=== PATIENT | male | born 1955 | race Caucasian/White ===

== ENCOUNTER 2018-11-28 19:12 | Observation (INO) ==
[2018-11-28] MEDS ORDERED: Isovue-370 500 ML INFUS..BTL IV ONE (19:22)
[2018-11-28] MEDS ORDERED: 0.9 % Sodium Chloride 1,000 ML IVC ONE (19:22)
--- NOTE | 2018-11-28 19:26 | Emergency Department Note ---
Disposition Clinical Impression: Syncope Qualifiers: Syncope type: unspecified Qualified Code(s): R55 - Syncope and collapse Disposition: Still a Patient Condition: Undetermined Referrals: NONE,PCP [Primary Care Provider] - Syncope HPI - General Stated Complaint: neck pain/syncope Time Seen by Provider: 11/28/18 19:13 Source: patient, EMS Mode of arrival: EMS Limitations: no limitations Nursing Notes Reviewed: Yes Vital Signs Reviewed: Yes - History of Present Illness HPI Narrative: Patient presents to the ED via EMS after a syncopal episode. Patient does live at an assisted living facility. He has a history of chronic neck pain and states it has been bothering him more than usual lately. According to EMS, the staff said the patient was sitting down at dinner and started complaining of very sharp left-sided neck pain and then had a syncopal episode. He did not have any associated injury with the fall, but he woke up and was confused and did not remember what happened. He denies any headache or changes in vision. He is still complaining of neck pain. States the pain starts in his chest and goes up into his neck, but does not radiate down his arm or into his back. Does seem to be worse with side bending and rotation. Denies any other chest pain or shortness breath. No abdominal pain. No nausea, vomiting, diarrhea. No diaphoresis. No numbness, weakness or tingling in his extremities - Related Data Home Medications Medication Instructions Recorded Confirmed ALPRAZolam [Xanax 0.25 MG Tablet] 01/14/16 Albuterol Sulfate [Proair Hfa] 01/14/16 Aspirin [Adult Low Dose Aspirin EC] 01/14/16 BuPROPion [Wellbutrin] 75 mg PO TID 01/14/16 01/14/16 Budesonide/Formoterol 80/4.5 01/14/16 [Symbicort 80/4.5] Budesonide/Formoterol 80/4.5 01/14/16 [Symbicort 80/4.5] Carvedilol [Coreg] 01/14/16 Cholecalciferol (Vitamin D3) 01/14/16 [Vitamin D] Cyanocobalamin (Vitamin B-12) 01/14/16 [Vitamin B-12] Cyclobenzaprine [Flexeril] 01/14/16 Esomeprazole Magnesium [Nexium] 01/14/16 Fluticasone Propionate Nasal 01/14/16 [Flonase] Furosemide [Lasix] 01/14/16 Ibuprofen [Motrin] 01/14/16 Ipratropium [Atrovent Inhaler] 1 puff IH 01/14/16 Lansoprazole [Prevacid] 01/14/16 Loratadine [Claritin] 01/14/16 Meperidine HCl [Demerol] 01/14/16 Montelukast [Singulair] 01/14/16 Nitrostat 01/14/16 Oxycodone HCl/Acetaminophen 01/14/16 [Percocet 5-325 mg Tablet] Oxymetazoline HCl [Nasal [place]] 01/14/16 Paridaxa 01/14/16 Potassium 01/14/16 RisperiDONE [Risperdal] 01/14/16 Sertraline [Zoloft] 01/14/16 Spiriva 01/14/16 Previous Rx's Medication Instructions Recorded Cefuroxime Axetil [Ceftin] 500 mg PO BID #20 tablet 01/14/16 Oxycodone HCl/Acetaminophen 1 each PO Q6HR PRN #15 tablet 08/30/16 [Percocet 5-325 mg Tablet] Allergies Allergy/AdvReac Type Severity Reaction Status Date / Time aripiprazole [From Abilify] Allergy See Verified 08/16/15 14:31 Comments codeine Allergy See Verified 08/16/15 14:31 Comments gabapentin [From Neurontin] Allergy See Verified 08/16/15 14:31 Comments Review of Systems: As reviewed in the HPI. All other systems reviewed are negative or normal. Past Medical History - Past Medical History Attestation: Yes The following information was validated with the patient. Source: patient Medical history: Reports: atrial fibrillation, CHF, COPD, coronary artery disease, CVA, diabetes, GERD, hyperlipidemia, hypertension, myocardial infarction, pulmonary embolus, other Surgical history: Reports: pacemaker/AICD Psychiatric history: Reports: anxiety, bipolar, depression, PTSD - Social History Smoking Status: Never smoker Smokeless Tobacco Status: No Alcohol use: Reports: occasionally Drug use: Reports: none Physical Exam CONSTITUTIONAL: [Chronically ill appearing, alert and in no acute distress] EYES: [EOMI, clear conjunctiva, PERRLA] HENT: [Normocephalic, atraumatic, moist mucus membranes, normal oropharynx] NECK: [normal inspection, full ROM, trachea midline, no obvious swelling] PULMONARY: [normal lung sounds bilaterally, normal chest rise and fall, no respiratory distress or stridor, no wheezes, no rales, no rhonchi CARDIOVASCULAR: [regular rate, regular rhythm, normal heart sounds, no murmurs, distal extremities are warm and well perfused] GASTROINSTESTINAL: [soft, non-tender, non-rigid, non-distended, no guarding, no rebound, normal bowel sounds] GENITOURINARY/RECTAL: [deferred] NEUROLOGIC: [Alert, oriented x3, normal speech, moves all extremities] EXTREMITIES: [Normal inspection, full ROM, no tenderness, no pedal edema, normal capillary refill] MUSCULOSKELETAL: [no gross deformities, atraumatic] SKIN: [No cyanosis, no diaphoresis, normal color, warm, no rash] PSYCHIATRIC: [normal mood and affect] Course - Reevaluation(s) Reevaluation #1: patient signed out to Dr. Dockery/Francesca pending CTA head/neck reads and pending admission to hospitalist service. Patient stable. Vital Signs Temperature 98.7 F 11/28/18 19:23 Pulse Rate 70 11/28/18 19:23 Respiratory Rate 18 11/28/18 19:23 Blood Pressure 131/81 11/28/18 19:23 O2 Sat by Pulse Oximetry 99 11/28/18 19:23 Temperature 98.7 F 11/28/18 19:23 Pulse Rate 70 11/28/18 19:23 Respiratory Rate 18 11/28/18 19:23 Blood Pressure 131/81 11/28/18 19:23 O2 Sat by Pulse Oximetry 99 11/28/18 19:23 Oxygen Delivery Oxygen Delivery Room Air Syncope - Lab Data Result diagrams: 11/28/18 19:30 11/28/18 19:30 Lab Results 11/28/18 11/28/18 11/28/18 Range/Units 19:30 19:30 19:30 WBC 6.7 (4.3-11.1) K/mcL RBC 5.04 (4.19-5.50) M/mcL Hgb 14.1 (12.9-16.9) g/dL Hct 43.9 (37.5-50.1) % MCV 87.1 (83.0-100.0) fL MCH 28.0 (28.0-33.3) pg MCHC 32.1 (31.6-35.5) g/dL RDW 13.2 (11.5-14.5) % Plt Count 107 L (140-400) K/mcL MPV 10.7 (9.4-12.4) fL Immature Gran % 0.1 (0-4) % Seg Neutrophils % 55.5 % Lymphocytes % 32.7 % Monocytes % 7.7 % Eosinophils % 3.4 % Basophils % 0.6 % Neutrophils # 3.7 (1.6-8.9) K/mcL Lymphocytes # 2.2 (0.6-4.6) K/mcL Monocytes # 0.5 (0.0-1.3) K/mcL Eosinophils # 0.2 (0.0-0.6) K/mcL Basophils # 0.0 (0.0-0.2) K/mcL PT 14.7 H (9.4-12.1) Seconds INR 1.3 APTT 47.2 H (26.0-36.0) Seconds Sodium 139 (136-145) mEq/L Potassium 4.1 (3.5-5.1) mEq/L Chloride 108 H (98-107) mEq/L Carbon Dioxide 24 (23-29) mEq/L BUN 12 (8-23) mg/dL Creatinine 1.06 (0.70-1.30) mg/dL Est GFR ( Amer) > 60 (> 60) Est GFR (Non-Af Amer) > 60 (> 60) BUN/Creatinine Ratio 11 (6-26) Glucose 241 H (70-105) mg/dL Calculated Osmolality 296 (280-300) Lactic Acid (0.5-2.2) mmol/L Calcium 8.7 (8.6-10.3) mg/dL Troponin I < 0.03 (< 0.04) ng/mL Urine Color (Yellow) Urine Clarity (Clear) Urine pH (5.0-8.0) pH Units Ur Specific [place] (1.010-1.025) Urine Protein (Neg-Trace) mg/dL Urine Glucose (UA) (Normal) mg/dL Urine Ketones (Negative) mg/dL Urine Blood (Negative) Urine Nitrite (Negative) Urine Bilirubin (Negative) Urine Urobilinogen (Normal) mg/dL Ur Leukocyte Esterase (Negative) 11/28/18 11/28/18 Range/Units 19:30 20:28 WBC (4.3-11.1) K/mcL RBC (4.19-5.50) M/mcL Hgb (12.9-16.9) g/dL Hct (37.5-50.1) % MCV (83.0-100.0) fL MCH (28.0-33.3) pg MCHC (31.6-35.5) g/dL RDW (11.5-14.5) % Plt Count (140-400) K/mcL MPV (9.4-12.4) fL Immature Gran % (0-4) % Seg Neutrophils % % Lymphocytes % % Monocytes % % Eosinophils % % Basophils % % Neutrophils # (1.6-8.9) K/mcL Lymphocytes # (0.6-4.6) K/mcL Monocytes # (0.0-1.3) K/mcL Eosinophils # (0.0-0.6) K/mcL Basophils # (0.0-0.2) K/mcL PT (9.4-12.1) Seconds INR APTT (26.0-36.0) Seconds Sodium (136-145) mEq/L Potassium (3.5-5.1) mEq/L Chloride (98-107) mEq/L Carbon Dioxide (23-29) mEq/L BUN (8-23) mg/dL Creatinine (0.70-1.30) mg/dL Est GFR ( Amer) (> 60) Est GFR (Non-Af Amer) (> 60) BUN/Creatinine Ratio (6-26) Glucose (70-105) mg/dL Calculated Osmolality (280-300) Lactic Acid 1.8 (0.5-2.2) mmol/L Calcium (8.6-10.3) mg/dL Troponin I (< 0.04) ng/mL Urine Color Yellow (Yellow) Urine Clarity Clear (Clear) Urine pH 6.0 (5.0-8.0) pH Units Ur Specific [place] 1.009 L (1.010-1.025) Urine Protein Negative (Neg-Trace) mg/dL Urine Glucose (UA) 500 H (Normal) mg/dL Urine Ketones Negative (Negative) mg/dL Urine Blood Negative (Negative) Urine Nitrite Negative (Negative) Urine Bilirubin Negative (Negative) Urine Urobilinogen Normal (Normal) mg/dL Ur Leukocyte Esterase Negative (Negative) - EKG Data EKG attestation: Yes I reviewed and interpreted this EKG. EKG results narrative: Patient's EKG demonstrates a ventricularly paced rhythm with a heart rate of 70. Attestation Statement - Attestation Attestation: Patient was seen with resident physician. I reviewed the history, physical, assessment and plan, and agree with the findings. I also personally evaluated this patient and had [id number] time with this patient. 63-year-old male lives at an assisted living facility, presents today with syncope and neck pain. Patient states that these had chronic neck pain which got an acute exacerbation minutes on the left side and the cervical spine laterally. I said after developing pain he was being woken up on the ground. He said he passed out. He has had a history of 3 strokes. Does not have significant syncope. He does have multiple medical problems. Currently says he feels okay. His neck still hurts but is not feel like is given a passout no chest pain shortness of breath diaphoresis or other complaints. Review of systems as above remainder negative. Physical exam vital signs are stable. ENT is unremarkable. Neck is tender to palpation on the left lateral aspect with muscle spasm in the area. Heart regular rhythm and rate. Lungs clear. Abdomen soft and nontender. Extremities unremarkable. Neurologically intact. Skin no rashes. Psych normal. I with the patient's syncope and vascular history, we will do CTA of the head neck. He was still a patient of the time of shift change. 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 At that time CT scans were pending as was final disposition which we will recommend be admission. Patient was hemodynamically stable otherwise while in the emergency department under my care and had no additional episodes of syncope or focal neurologic findings. Agree with the resident physician assessment and plan.
[2018-11-28 19:44] LABS: Basophils % 0.6 %; Eosinophils # 0.2 K/mcL (0.0-0.6); Eosinophils % 3.4 %; Hematocrit 43.9 % (37.5-50.1); Hemoglobin 14.1 g/dL (12.9-16.9); Immature Granulocytes % 0.1 % (0-4); Lymphocytes # 2.2 K/mcL (0.6-4.6); Lymphocytes % 32.7 %; Mean Corpuscular HGB Conc 32.1 g/dL (31.6-35.5); Mean Corpuscular Volume 87.1 fL (83.0-100.0); Mean Platelet Volume 10.7 fL (9.4-12.4); Monocytes # 0.5 K/mcL (0.0-1.3); Monocytes % 7.7 %; Neutrophils # 3.7 K/mcL (1.6-8.9); Platelet Count 107 K/mcL (140-400); Red Blood Count 5.04 M/mcL (4.19-5.50); Red Cell Distribution Width 13.2 % (11.5-14.5); Segmented Neutrophils % 55.5 %
[2018-11-28 19:53] LABS: INR 1.3; Prothrombin Time 14.7 Seconds (9.4-12.1)
[2018-11-28 19:56] LABS: Activated Partial Thrombo Time 47.2 Seconds (26.0-36.0)
[2018-11-28 20:03] LABS: BUN/Creatinine Ratio 11 (6-26); Blood Urea Nitrogen 12 mg/dL (8-23); Calcium 8.7 mg/dL (8.6-10.3); Carbon Dioxide 24 mEq/L (23-29); Chloride 108 mEq/L (98-107); Glucose 241 mg/dL (70-105); Osmolality,Calculated 296 (280-300); Potassium 4.1 mEq/L (3.5-5.1); Sodium 139 mEq/L (136-145); eGFR For Non-African Americans > 60 (> 60)
[2018-11-28 20:04] LABS: Troponin I < 0.03 ng/mL (< 0.04)
[2018-11-28 20:40] LABS: Bilirubin,Urine Negative (Negative); Blood,Urine Negative (Negative); Clarity,Urine Clear (Clear); Color,Urine Yellow (Yellow); Glucose,Urine (UA) 500 mg/dL (Normal); Ketones,Urine Negative (Negative); Leukocyte Esterase,Urine Negative (Negative); Nitrite,Urine Negative (Negative); Protein,Urine Negative (Neg-Trace); Specific Gravity,Urine 1.009 (1.010-1.025); Urobilinogen,Urine Normal (Normal)
--- NOTE | 2018-11-28 23:22 | Emergency Department Note ---
Disposition Clinical Impression: Syncope Qualifiers: Syncope type: unspecified Qualified Code(s): R55 - Syncope and collapse Disposition: Admitted As Inpatient Condition: Undetermined Referrals: NONE,PCP [Primary Care Provider] - Syncope HPI - General Chief Complaint: ED Syncope Stated Complaint: neck pain/syncope Time Seen by Provider: 11/28/18 19:13 Source: patient, EMS Mode of arrival: EMS Limitations: no limitations Nursing Notes Reviewed: Yes Vital Signs Reviewed: Yes - Related Data Home Medications Medication Instructions Recorded Confirmed ALPRAZolam [Xanax 0.25 MG Tablet] 01/14/16 Albuterol Sulfate [Proair Hfa] 01/14/16 Aspirin [Adult Low Dose Aspirin EC] 01/14/16 BuPROPion [Wellbutrin] 75 mg PO TID 01/14/16 01/14/16 Budesonide/Formoterol 80/4.5 01/14/16 [Symbicort 80/4.5] Budesonide/Formoterol 80/4.5 01/14/16 [Symbicort 80/4.5] Carvedilol [Coreg] 01/14/16 Cholecalciferol (Vitamin D3) 01/14/16 [Vitamin D] Cyanocobalamin (Vitamin B-12) 01/14/16 [Vitamin B-12] Cyclobenzaprine [Flexeril] 01/14/16 Esomeprazole Magnesium [Nexium] 01/14/16 Fluticasone Propionate Nasal 01/14/16 [Flonase] Furosemide [Lasix] 01/14/16 Ibuprofen [Motrin] 01/14/16 Ipratropium [Atrovent Inhaler] 1 puff IH 01/14/16 Lansoprazole [Prevacid] 01/14/16 Loratadine [Claritin] 01/14/16 Meperidine HCl [Demerol] 01/14/16 Montelukast [Singulair] 01/14/16 Nitrostat 01/14/16 Oxycodone HCl/Acetaminophen 01/14/16 [Percocet 5-325 mg Tablet] Oxymetazoline HCl [Nasal [place]] 01/14/16 Paridaxa 01/14/16 Potassium 01/14/16 RisperiDONE [Risperdal] 01/14/16 Sertraline [Zoloft] 01/14/16 Spiriva 01/14/16 Previous Rx's Medication Instructions Recorded Cefuroxime Axetil [Ceftin] 500 mg PO BID #20 tablet 01/14/16 Oxycodone HCl/Acetaminophen 1 each PO Q6HR PRN #15 tablet 08/30/16 [Percocet 5-325 mg Tablet] Allergies Allergy/AdvReac Type Severity Reaction Status Date / Time aripiprazole [From Abilify] Allergy See Verified 08/16/15 14:31 Comments codeine Allergy See Verified 08/16/15 14:31 Comments gabapentin [From Neurontin] Allergy See Verified 08/16/15 14:31 Comments Past Medical History - Past Medical History Medical history: Reports: atrial fibrillation, CHF, COPD, coronary artery disease, CVA, diabetes, GERD, hyperlipidemia, hypertension, myocardial i nfarction, pulmonary embolus, other Surgical history: Reports: pacemaker/AICD Psychiatric history: Reports: anxiety, bipolar, depression, PTSD - Social History Smoking Status: Never smoker Smokeless Tobacco Status: No Alcohol use: Reports: occasionally Drug use: Reports: none Physical Exam - General Limitations: no limitations General appearance: alert, in no apparent distress Course Course Narrative: Patient taken over from Dr. Haley. Patient is a vasculopath with previous OH. Came in complaining of worsening left neck pain with associated syncope. EKG shows ventricularly paced rhythm. Following up on CTA which does not show any acute abnormality. Case was discussed with Dr. Dong. Patient admitted to the hospitalist service. Vital Signs Temperature 98.7 F 11/28/18 19:23 Pulse Rate 70 11/28/18 19:23 Respiratory Rate 18 11/28/18 19:23 Blood Pressure 131/81 11/28/18 19:23 O2 Sat by Pulse Oximetry 99 11/28/18 19:23 Temperature 98.7 F 11/28/18 19:23 Pulse Rate 70 11/28/18 22:10 Respiratory Rate 18 11/28/18 22:10 Blood Pressure 145/83 11/28/18 22:10 O2 Sat by Pulse Oximetry 100 11/28/18 22:10 Oxygen Delivery Oxygen Delivery Room Air Syncope - Lab Data Result diagrams: 11/28/18 19:30 11/28/18 19:30 Lab Results 11/28/18 11/28/18 11/28/18 Range/Units 19:30 19:30 19:30 WBC 6.7 (4.3-11.1) K/mcL RBC 5.04 (4.19-5.50) M/mcL Hgb 14.1 (12.9-16.9) g/dL Hct 43.9 (37.5-50.1) % MCV 87.1 (83.0-100.0) fL MCH 28.0 (28.0-33.3) pg MCHC 32.1 (31.6-35.5) g/dL RDW 13.2 (11.5-14.5) % Plt Count 107 L (140-400) K/mcL MPV 10.7 (9.4-12.4) fL Immature Gran % 0.1 (0-4) % Seg Neutrophils % 55.5 % Lymphocytes % 32.7 % Monocytes % 7.7 % Eosinophils % 3.4 % Basophils % 0.6 % Neutrophils # 3.7 (1.6-8.9) K/mcL Lymphocytes # 2.2 (0.6-4.6) K/mcL Monocytes # 0.5 (0.0-1.3) K/mcL Eosinophils # 0.2 (0.0-0.6) K/mcL Basophils # 0.0 (0.0-0.2) K/mcL PT 14.7 H (9.4-12.1) Seconds INR 1.3 APTT 47.2 H (26.0-36.0) Seconds Sodium 139 (136-145) mEq/L Potassium 4.1 (3.5-5.1) mEq/L Chloride 108 H (98-107) mEq/L Carbon Dioxide 24 (23-29) mEq/L BUN 12 (8-23) mg/dL Creatinine 1.06 (0.70-1.30) mg/dL Est GFR ( Amer) > 60 (> 60) Est GFR (Non-Af Amer) > 60 (> 60) BUN/Creatinine Ratio 11 (6-26) Glucose 241 H (70-105) mg/dL Calculated Osmolality 296 (280-300) Lactic Acid (0.5-2.2) mmol/L Calcium 8.7 (8.6-10.3) mg/dL Troponin I < 0.03 (< 0.04) ng/mL Urine Color (Yellow) Urine Clarity (Clear) Urine pH (5.0-8.0) pH Units Ur Specific [place] (1.010-1.025) Urine Protein (Neg-Trace) mg/dL Urine Glucose (UA) (Normal) mg/dL Urine Ketones (Negative) mg/dL Urine Blood (Negative) Urine Nitrite (Negative) Urine Bilirubin (Negative) Urine Urobilinogen (Normal) mg/dL Ur Leukocyte Esterase (Negative) 11/28/18 11/28/18 Range/Units 19:30 20:28 WBC (4.3-11.1) K/mcL RBC (4.19-5.50) M/mcL Hgb (12.9-16.9) g/dL Hct (37.5-50.1) % MCV (83.0-100.0) fL MCH (28.0-33.3) pg MCHC (31.6-35.5) g/dL RDW (11.5-14.5) % Plt Count (140-400) K/mcL MPV (9.4-12.4) fL Immature Gran % (0-4) % Seg Neutrophils % % Lymphocytes % % Monocytes % % Eosinophils % % Basophils % % Neutrophils # (1.6-8.9) K/mcL Lymphocytes # (0.6-4.6) K/mcL Monocytes # (0.0-1.3) K/mcL Eosinophils # (0.0-0.6) K/mcL Basophils # (0.0-0.2) K/mcL PT (9.4-12.1) Seconds INR APTT (26.0-36.0) Seconds Sodium (136-145) mEq/L Potassium (3.5-5.1) mEq/L Chloride (98-107) mEq/L Carbon Dioxide (23-29) mEq/L BUN (8-23) mg/dL Creatinine (0.70-1.30) mg/dL Est GFR ( Amer) (> 60) Est GFR (Non-Af Amer) (> 60) BUN/Creatinine Ratio (6-26) Glucose (70-105) mg/dL Calculated Osmolality (280-300) Lactic Acid 1.8 (0.5-2.2) mmol/L Calcium (8.6-10.3) mg/dL Troponin I (< 0.04) ng/mL Urine Color Yellow (Yellow) Urine Clarity Clear (Clear) Urine pH 6.0 (5.0-8.0) pH Units Ur Specific [place] 1.009 L (1.010-1.025) Urine Protein Negative (Neg-Trace) mg/dL Urine Glucose (UA) 500 H (Normal) mg/dL Urine Ketones Negative (Negative) mg/dL Urine Blood Negative (Negative) Urine Nitrite Negative (Negative) Urine Bilirubin Negative (Negative) Urine Urobilinogen Normal (Normal) mg/dL Ur Leukocyte Esterase Negative (Negative)
[2018-11-29] MEDS ORDERED: Naloxone 0.4 MG/ML INJ IVP PRN (00:42)
[2018-11-29] MEDS ORDERED: Albuterol 2.5 MG/3 ML NEBULIZER IH PRN (01:05)
[2018-11-29] MEDS ORDERED: 0.9 % Sodium Chloride 1,000 ML IVC ONE (01:10)
[2018-11-29] MEDS ORDERED: *HR* Dextrose 50 % in Water (Syg) 50 ML SYRINGE IVP PRN (02:15)
[2018-11-29] MEDS ORDERED: Dextrose Gel 15 GM/37.5 ML TUBE PO PRN ×2 (02:15)
[2018-11-29] MEDS ORDERED: D5% in Water 1,000 ML IVC PRN (02:15)
--- NOTE | 2018-11-29 02:20 | Internal Med History&Physical ---
Date of Encounter: 11/29/18 Time of Encounter: 00:50 Internal Medicine - H&P: HPI Chief complaint: Syncope Admitted From: Emergency Dept Plans for Post Hospital Care: Home History of present illness: Mr. Montes is a 63 year old male She presented to the emergency room after a syncope episode. He lives at an assisted living facility, was getting up from dinner, when he felt dizzy and fell back onto his chair. He also experienced left-sided neck pain around the same time. He denies vision changes and headache at the time of the incident. He woke up and had some confusion after the event. He did not hit his head. He states that this has happened before in the past a couple of months ago, and he was evaluated at [facility]. He says the workup there was quite extensive but there was no definitive cause of his syncope episode. He had his pacemaker interrogated at that time as well but says that the horticultural farmworker had difficulties with the process and he does not think it was completed. He came to the emergency room to be evaluated. In the emergency room patient's CBC showed platelet count 107, 10 days ago platelets were 117. Patient's BMP showed a glucose of 241, troponins were less than 0.03. Patient's urinalysis was negative for infection. CT angiogram of the head and neck showed no acute intracranial abnormality and was unremarkable. Chest x-ray showed no acute cardiopulmonary disease. EKG showed ventricularly paced rhythm with heart rate of 70. He was given a bolus of IV fluids, until medical floor for further workup. Upon my evaluation, patient denies nausea, vomiting, chest pain shortness of breath. He does have wheezing on exam and says that he has had diarrhea over the last few days. He denies abdominal pain. He is having some neck pain but it is at his baseline. He says he lives at the assisted living facility because he is disabled, and unable to take care of himself. He has chronic neck and back pain. Past Med Surg Social Fam HX - Past Medical History Medical history: atrial fibrillation, CHF, COPD, coronary artery disease, CVA, diabetes, GERD, hyperlipidemia, hypertension, myocardial infarction, pulmonary embolus, other Psychiatric history: anxiety, bipolar, depression, PTSD - Past Surgical History Surgical History: pacemaker/AICD Additional surgical history: eye, - Social History Smoking Status: Never smoker Smokeless Tobacco Status: No Alcohol use: occasionally Drug use: none - Family History Grandfather Living Status: Hx Family Cardiac Disorders: Yes (heart attack) Mother Living Status: Father Living Status: Still Living Hx Family Neuromuscular Disorders: Yes (parkinsons disease) Internal Medicine - H&P: Meds Aspirin [Adult Low Dose Aspirin EC] 325 mg PO DAILY 01/14/16 [History] Budesonide/Formoterol 80/4.5 [Symbicort 80/4.5] 2 puff IH BID 01/14/16 [History] Carvedilol [Coreg] 25 mg PO BID 01/14/16 [History] Esomeprazole Magnesium [Nexium] 40 mg PO DAILY 01/14/16 [History] Fluticasone Propionate Nasal [Flonase] 2 spray IN DAILY 01/14/16 [History] Furosemide [Lasix] 40 mg PO BID 01/14/16 [History] Loratadine [Claritin] 10 mg PO DAILY 01/14/16 [History] Montelukast [Singulair] 10 mg PO DAILY 01/14/16 [History] Paridaxa 150 mg PO BID 01/14/16 [History] Potassium 20 meq PO TID 01/14/16 [History] RisperiDONE [Risperdal] 2 mg PO DAILY 01/14/16 [History] Sertraline [Zoloft] 100 mg PO BID 01/14/16 [History] Spiriva 1 puff PO DAILY 01/14/16 [History] Buspar 10 mg PO TID 11/29/18 [History] Crestor 10 mg PO DAILY 11/29/18 [History] Cymbalta 60 mg PO DAILY 11/29/18 [History] Farxiga 10 mg PO DAILY 11/29/18 [History] Ferrous Sulfate 325 mg PO DAILY 11/29/18 [History] HydrOXYzine Pamoate 100 mg PO HS 11/29/18 [History] Levemir 60 unit SQ BID 11/29/18 [History] Lyrica 50 mg PO TID 11/29/18 [History] Mag-Oxide Magnesium 400 mg PO DAILY 11/29/18 [History] Midodrine 10 g PO BID 11/29/18 [History] Novolog 25 units SQ TID 11/29/18 [History] Oxycodone HCl/Acetaminophen [Percocet 5-325 mg Tablet] 1 each PO Q4HR 11/29/18 [History] Synthroid 88 mcg PO DAILY 11/29/18 [History] Topiramate 100 mg PO BID 11/29/18 [History] TraZODone 300 mg PO HS 11/29/18 [History] Victoza 2-Scotty 1.8 mg PO DAILY 11/29/18 [History] Allergy/AdvReac Type Severity Reaction Status Date / Time aripiprazole [From Abilify] Allergy See Verified 08/16/15 14:31 Comments codeine Allergy See Verified 08/16/15 14:31 Comments gabapentin [From Neurontin] Allergy See Verified 08/16/15 14:31 Comments All Systems PM: A 10-system review of systems was performed and is negative for pertinent findings except as documented above in the HPI. - Constitutional Vitals: Temp Pulse Resp BP Pulse Ox 98.5 F 70 16 127/83 98 11/29/18 00:22 11/29/18 00:22 11/29/18 00:22 11/29/18 00:22 11/29/18 00:22 General appearance: Present: cooperative, A&O X 3, pleasant, no acute distress, answers questions appropriately Exam: - - Head Head exam: Present: normal inspection - Eye Eye exam: Present: EOMI, normal appearance - Respiratory Respiratory exam: Present: wheezes. Absent: CTAB, rales, respiratory distress - Cardiovascular Cardiovascular exam: Present: RRR. Absent: diastolic murmur, systolic murmur - GI/Abdominal GI/Abdominal exam: Present: normal bowel sounds, soft. Absent: tenderness - Extremities Exam Extremities exam: Present: warm, radial pulses palpable and symmetrical. Absent: calf tenderness, pedal edema, tenderness - Neurological Exam Neurological exam: Present: no focal deficits, strengths equal and symetr throughout. Absent: motor sensory deficit, facial droop, speech deficit - Skin Skin exam: Present: dry, normal color, warm Internal Med - H&P Results - Labs CBC & Chem 7: 11/28/18 19:30 11/28/18 19:30 Labs: Short CBC 11/28/18 Range/Units 19:30 WBC 6.7 (4.3-11.1) K/mcL Hgb 14.1 (12.9-16.9) g/dL Hct 43.9 (37.5-50.1) % Plt Count 107 L (140-400) K/mcL Neutrophils # 3.7 (1.6-8.9) K/mcL BMP 11/28/18 19:30 Sodium 139 Potassium 4.1 Chloride 108 H Carbon Dioxide 24 BUN 12 Creatinine 1.06 Glucose 241 H Calcium 8.7 Cardiac Enzymes 11/28/18 Range/Units 19:30 Troponin I < 0.03 (< 0.04) ng/mL Urine 11/28/18 Range/Units 20:28 Urine Color Yellow (Yellow) Urine Clarity Clear (Clear) Urine pH 6.0 (5.0-8.0) pH Units Ur Specific [place] 1.009 L (1.010-1.025) Urine Protein Negative (Neg-Trace) mg/dL Urine Glucose (UA) 500 H (Normal) mg/dL - Impressions ITS Impressions Angiography CT 11/28/18 19:22 IMPRESSION: No acute intracranial abnormality. Unremarkable CTA of the head and neck. D/ / 11/28/2018 21:08:58 Jory Díaz MD / matthew Interpreting Provider: Jory Díaz MD Chest X-Ray 11/28/18 19:22 IMPRESSION: No acute cardiopulmonary disease D/ / 11/28/2018 19:54:14 Pete Kang MD / matthew Interpreting Provider: Pete Kang MD Neck CTA 11/28/18 19:23 IMPRESSION: No acute intracranial abnormality. Unremarkable CTA of the head and neck. D/ / 11/28/2018 21:08:58 Jory Díaz MD / matthew Interpreting Provider: Jory Díaz MD - Assessment and plan (1) Syncope Current Visit: Yes Status: Acute Assessment and plan: Had a syncope event while getting up from dinner last evening. Has had events like this in the past with work up at [facility]. No definitive cause was found according to the patient. Has history of pace maker as well. Head and neck CT negative. Repeat orthostatic blood pressures in AM PT/OT consultation Cardiology consult Carotid doppler Cardiac monitoring Hold home meds that could be contributing. Patient does request we continue his pain medication however. Qualifiers: Syncope type: unspecified Qualified Code(s): R55 - Syncope and collapse (2) Thrombocytopenia Current Visit: Yes Status: Acute Assessment and plan: Platelets 107 in ER, 117 10 days ago as well. Patient's labs from 2013 and 2014 also indicate low platelets. CMP in AM to assess other liver function tests SCDs for DVT prophylaxis (3) Chronic neck and back pain Current Visit: Yes Status: Acute Assessment and plan: Continue home meds (4) Diabetes Current Visit: Yes Status: Acute Assessment and plan: Patient takes multiple diabetic medications. Low dose sliding scale insulin Hold home meds Diabetic diet Monitor sugars with meals and at night Qualifiers: Diabetes mellitus type: type 2 Diabetes mellitus chcf insulin use: wi th long distance operator use Diabetes mellitus complication status: without complication Qualified Code(s): E11.9 - Type 2 diabetes mellitus without complications; Z79.4 - residential (current) use of insulin (5) Wheeze Current Visit: Yes Status: Acute Assessment and plan: Wheezy on exam, patient states that he has a history of COPD. Chest x-ray showed no abnormalities. Start breathing treatments Oxygen supplementation as needed. (6) Cardiac pacemaker Current Visit: Yes Status: Acute Assessment and plan: Will have cardiology interrogate pace maker in the morning. (7) DVT prophylaxis Current Visit: Yes Status: Acute Assessment and plan: SCDs - Time Spent With Patient Total time spent is greater than 50% in coordination of care (as documented) at patient's floor/unit and/or counseling patient: Greater than 35 minutes
[2018-11-29] MEDS: *HR* OxyCODONE/APAP 5/325 TABLET PO PRN ×3 (03:17→18:04)
[2018-11-29] MEDS: Ipratropium/Albuterol Neb 3 ML IH SCH ×4 (05:24→23:30)
[2018-11-29 05:46] LABS: Hematocrit 43.1 % (37.5-50.1); Hemoglobin 13.8 g/dL (12.9-16.9); Mean Corpuscular Hemoglobin 27.7 pg (28.0-33.3); Mean Corpuscular Volume 86.4 fL (83.0-100.0); Mean Platelet Volume 11.5 fL (9.4-12.4); Platelet Count 114 K/mcL (140-400); Red Blood Count 4.99 M/mcL (4.19-5.50); Red Cell Distribution Width 13.2 % (11.5-14.5)
[2018-11-29 06:02] LABS: Alanine Aminotransferase 21 Units/L (7-52); Albumin 3.5 g/dL (3.5-5.7); Albumin/Globulin Ratio 1.5 (1.1-2.2); Alkaline Phosphatase 58 Units/L (34-104); Aspartate Amino Transferase 31 Units/L (13-39); BUN/Creatinine Ratio 12 (6-26); Bilirubin,Total 0.6 mg/dL (0.3-1.0); Blood Urea Nitrogen 10 mg/dL (8-23); Calcium 8.5 mg/dL (8.6-10.3); Carbon Dioxide 22 mEq/L (23-29); Chloride 109 mEq/L (98-107); Globulin 2.4 g/dL (2.4-3.5); Glucose 92 mg/dL (70-105); Osmolality,Calculated 287 (280-300); Potassium 3.6 mEq/L (3.5-5.1); Sodium 139 mEq/L (136-145); Total Protein 5.9 g/dL (6.4-8.9); eGFR For Non-African Americans > 60 (> 60)
[2018-11-29] MEDS: Insulin LISPRO 300 UNITS/3 ML VIAL SQ SCH ×4 (07:59→19:56)
[2018-11-29 08:20] LABS: Thyroid Stimulating Hormone 1.459 mcIU/mL (0.340-5.600)
--- NOTE | 2018-11-29 08:53 | Event Note ---
Date of Encounter: 11/29/18 Time of Encounter: 08:49 Seen and examined at bedside today. Here for recurrent syncopal events which began 3-4 months ago per patient recollection. He has had a w/u for this at [facility] but he is unsure of what that workup entailed or what the results may have indicated. He continues to have orthostasis for which he is taking midodrine 10mg BID. Dose may need to be increased. Otherwise I agree with plan document by admitting physician PHYSICAL EXAMINATION: GENERAL: Elderly male, NAD, A&OX3 HEENT: Head is normocephalic and atraumatic. EOMI, PERRLA NECK: Supple. No carotid bruits. No lymphadenopathy or thyromegaly. LUNGS: Clear to auscultation B/L AP and L. HEART: Regular rate and rhythm, S1, S2 without murmur. ABDOMEN: Soft, nontender, and nondistended. NABS EXTREMITIES: Without any cyanosis, clubbing, rash, lesions or edema. NEUROLOGIC: Cranial nerves II through XII are grossly intact. non-focal and non lateralizing SKIN: No ulceration or induration present.
[2018-11-29] MEDS: *HR* Dabigatran 150 MG CAPSULE PO SCH ×2 (09:51→19:56)
[2018-11-29] MEDS: Aspirin Enteric Coated 325 MG Tablet PO SCH (09:51)
--- NOTE | 2018-11-29 12:29 | Event Note ---
Date of Encounter: 11/29/18 Time of Encounter: 12:28 - Cardiology Event Note Patient has [employer] pacemaker. Pacemaker was interrogated for syncopal event. Device check normal. No events noted. Cardiology will sign off. Reconsult if needed.
[2018-11-30] MEDS: Ipratropium/Albuterol Neb 3 ML IH SCH ×4 (05:44→22:21)
[2018-11-30] MEDS: Insulin LISPRO 300 UNITS/3 ML VIAL SQ SCH ×4 (08:47→21:05)
[2018-11-30] MEDS: *HR* Dabigatran 150 MG CAPSULE PO SCH ×2 (08:47→20:58)
[2018-11-30] MEDS: Aspirin Enteric Coated 325 MG Tablet PO SCH (08:47)
[2018-11-30] MEDS: *HR* OxyCODONE/APAP 5/325 TABLET PO PRN ×3 (08:59→21:02)
[2018-11-30 10:11] LABS: Basophils % 0.6 %; Eosinophils # 0.3 K/mcL (0.0-0.6); Hematocrit 44.9 % (37.5-50.1); Hemoglobin 14.4 g/dL (12.9-16.9); Immature Granulocytes % 0.2 % (0-4); Lymphocytes # 1.6 K/mcL (0.6-4.6); Lymphocytes % 24.1 %; Mean Corpuscular HGB Conc 32.1 g/dL (31.6-35.5); Mean Corpuscular Hemoglobin 27.6 pg (28.0-33.3); Mean Corpuscular Volume 86.2 fL (83.0-100.0); Mean Platelet Volume 10.3 fL (9.4-12.4); Monocytes # 0.4 K/mcL (0.0-1.3); Monocytes % 5.7 %; Neutrophils # 4.2 K/mcL (1.6-8.9); Platelet Count 112 K/mcL (140-400); Red Blood Count 5.21 M/mcL (4.19-5.50); Segmented Neutrophils % 65.4 %
[2018-11-30 10:30] LABS: BUN/Creatinine Ratio 12 (6-26); Blood Urea Nitrogen 9 mg/dL (8-23); Calcium 8.7 mg/dL (8.6-10.3); Carbon Dioxide 22 mEq/L (23-29); Chloride 107 mEq/L (98-107); Glucose 256 mg/dL (70-105); Osmolality,Calculated 291 (280-300); Potassium 4.1 mEq/L (3.5-5.1); Sodium 137 mEq/L (136-145); eGFR For Non-African Americans > 60 (> 60)
--- NOTE | 2018-11-30 11:28 | Internal Med Progress Note ---
Hospitalist Progress Note - Encounter Date of Encounter: 11/30/18 Time of Encounter: 11:28 - Subjective Interval History: This patient is new to me and I did review previous records -Patient seen and examined at bedside - Currently denies any CP SOB or Lightheadedness- I did discuss the treatment tomlin with the patient who verbalized understanding - Exam Vitals: Temp Pulse Resp BP Pulse Ox 97.4 F L 71 16 163/94 96 11/30/18 10:25 11/30/18 10:25 11/30/18 10:25 11/30/18 10:25 11/30/18 10:25 Exam: General appearance: Present: cooperative, A&O X 3, pleasant, no acute distress, answers questions appropriately Exam: - Head Head exam: Present: normal inspection - Eye Eye exam: Present: EOMI, normal appearance - Respiratory Respiratory exam: Present: CTAB Absent: wheezes, rales, respiratory distress - Cardiovascular Cardiovascular exam: Present: RRR. Absent: diastolic murmur, systolic murmur - GI/Abdominal GI/Abdominal exam: Present: normal bowel sounds, soft. Absent: tenderness - Extremities Exam Extremities exam: Present: warm, radial pulses palpable and symmetrical. Absent: calf tenderness, pedal edema, tenderness - Neurological Exam Neurological exam: Present: no focal deficits, strengths equal and symetr throughout. Absent: motor sensory deficit, facial droop, speech deficit - Skin Skin exam: Present: dry, normal color, warm - Assessment and Plan (1) Syncope Current Visit: Yes Status: Acute Assessment and Plan: 1 Had a syncope event while getting up from dinner last evening. Has had events like this in the past with work up at [facility]. No definitive cause was found according to the patient.- I suspect this maybe multi factoral- Patient does admit to having diarrhea for approx one week, he is on a diuretic as well- this as well as polypharmacy maybe contributing to orhtostatic changes - Orthostatic VS this am does show a significant drop in his systolic BP- HR stable however review of telemetry for the pasrt 12hrs does show a continued paced rhythm - Pacemaker was interrogated by cardiology which demonstrated a normal device check -No events- - I will review medications and reduce diuretics as well as BB- -Place Thigh high ALICIA hose to be worn at all times except when in bed -Cont fall precautions -Monitor I/O -Recheck orthostatic in AM -Cont cardiac monitoring - TRAVIS 11/29/2018: Impressions: LVEF 55-60%. Normal LV chamber size, wall thickness and systolic function. Indeterminate diastolic function. Normal right ventricular structure and function. No significant valvular dysfunction. Unable to estimate RVSP due to lack of TR jet. Mildly dilated aortic root and ascending aorta. - Carotid Duplex: 11/29/2018 Findings: Bilateral carotid systems have nonstenotic plaque. (2) Cardiac pacemaker Current Visit: Yes Status: Acute Assessment and Plan: 1 He has been paced rhythm for past 12hrs with rate 70- Cardiology interrogated - Device check normal. No events noted. Follow up with cardiology as outpatient (3) Chronic neck and back pain Current Visit: Yes Status: Acute Assessment and Plan: Hx of chronic back pain - follows with pain clinic as outpatient- will cont outpatient follow up consult as needed Currently pain controlled- cont with Percocet (4) Diabetes Current Visit: Yes Status: Acute Assessment and Plan: 1 Cont with Accucheck AC/HS with SSI and basal insulin - hold oral medication for now Diabetic diet (5) Thrombocytopenia Current Visit: Yes Status: Acute Assessment and Plan: On presentation platelets were low 107- They have been stable around 114 since admission- no s/sx of bleeding- denies any hx of thrombocytopenia - we will monitor and patient will follow up with PCP (6) Wheeze Current Visit: Yes Status: Acute Assessment and Plan: Lung sounds clear this am- cont with bronchodilators cont with home oxygen (7) DVT prophylaxis Current Visit: Yes Status: Acute Assessment and Plan: Cont with Pradaxa - Time Spent with Patient Total time spent is greater than 50% in coordination of care (as documented) at patient's floor/unit and/or counseling patient: Internal Medicine: Result - Labs CBC & Chem 7: 11/30/18 09:59 11/30/18 09:59 Labs: Short CBC 11/30/18 Range/Units 09:59 WBC 6.5 (4.3-11.1) K/mcL Hgb 14.4 (12.9-16.9) g/dL Hct 44.9 (37.5-50.1) % Plt Count 112 L (140-400) K/mcL Neutrophils # 4.2 (1.6-8.9) K/mcL BMP 11/30/18 09:59 Sodium 137 Potassium 4.1 Chloride 107 Carbon Dioxide 22 L BUN 9 Creatinine 0.77 Glucose 256 H Calcium 8.7 - ABG Interpretation ABG results: PT/INR, D-dimer PT 14.7 Seconds (9.4-12.1) H 11/28/18 19:30 - Impressions Impressions Angiography CT 11/28/18 19:22 IMPRESSION: No acute intracranial abnormality. Unremarkable CTA of the head and neck. D/ / 11/28/2018 21:08:58 Jory Díaz MD / matthew Interpreting Provider: Jory Díaz MD Neck CTA 11/28/18 19:23 IMPRESSION: No acute intracranial abnormality. Unremarkable CTA of the head and neck. D/ / 11/28/2018 21:08:58 Jory Díaz MD / matthew Interpreting Provider: Jory Díaz MD Echocardiogram 11/29/18 01:09 Impressions: LVEF 55-60%. Normal LV chamber size, wall thickness and systolic function. Indeterminate diastolic function. Normal right ventricular structure and function. No significant valvular dysfunction. Unable to estimate RVSP due to lack of TR jet. Mildly dilated aortic root and ascending aorta. Left Ventricular Wall Motion: Rest Echo Findings All wall segments showed normal motion. Findings: Study Quality * Technically sub-optimal due to poor echocardiographic windows. ECG Findings * Paced rhythm. Left Ventricle * LVEF 55-60%. * Normal LV chamber size, wall thickness and systolic function. * Indeterminate diastolic function. * Definity echo contrast was not used. * Atypical septal motion consistent with paced rhythm. Right Ventricle * Normal right ventricular structure and function. Left Atrium * Normal left atrial size. Right Atrium * Normal right atrial size. Interatrial Septum * Interatrial septum not well evaluated. Aortic Valve * Aortic valve not well visualized. * No aortic stenosis. * No aortic regurgitation. Mitral Valve * Normal mitral valve structure. * No mitral stenosis. * Trace mitral regurgitation. Tricuspid Valve * Normal tricuspid valve structure and function. * No tricuspid stenosis. * Trace tricuspid regurgitation. * Unable to estimate RVSP due to lack of TR jet. Pulmonic Valve * Pulmonic valve is not well visualized. * No pulmonic stenosis. * No pulmonic regurgitation. Aorta * The aortic root and ascending aorta are mildly dilated at 4cm. Pericardium * The pericardium appears normal. IVC * The IVC is not well evaluated. Device lead * A device lead was visualized in the right atrium and right ventricle. Consult Discharge Plan - Plan Referrals: Jose Alfredo Ley MD [Partnered Physician] - (1) Syncope Qualifiers: Syncope type: unspecified Qualified Code(s): R55 - Syncope and collapse (4) Diabetes Qualifiers: Diabetes mellitus type: type 2 Diabetes mellitus chcf insulin use: with termite treater helper use Diabetes mellitus complication status: without complication Qualified Code(s): E11.9 - Type 2 diabetes mellitus without complications; Z79.4 - termite treater helper (current) use of insulin
[2018-11-30] MEDS: Furosemide 20 MG TABLET PO SCH (16:43)
[2018-11-30] MEDS: Topiramate 100 MG TABLET PO SCH (20:58)
[2018-11-30] MEDS: risperiDONE 1 MG TABLET PO SCH (20:58)
[2018-11-30] MEDS ORDERED: traZODone 50 MG TABLET PO SCH (21:00)
[2018-12-01] MEDS: *HR* OxyCODONE/APAP 5/325 TABLET PO PRN ×3 (01:07→12:26)
[2018-12-01 04:02] LABS: Hematocrit 45.4 % (37.5-50.1); Immature Granulocytes % 0.2 % (0-4)
[2018-12-01 04:04] LABS: Basophils % 0.7 %; Eosinophils # 0.3 K/mcL (0.0-0.6); Eosinophils % 5.1 %; Hemoglobin 14.6 g/dL (12.9-16.9); Immature Platelets 3.1 % (1.1-6.1); Lymphocytes % 34.8 %; Mean Corpuscular HGB Conc 32.2 g/dL (31.6-35.5); Mean Corpuscular Hemoglobin 27.8 pg (28.0-33.3); Mean Corpuscular Volume 86.5 fL (83.0-100.0); Mean Platelet Volume 10.4 fL (9.4-12.4); Monocytes # 0.5 K/mcL (0.0-1.3); Platelet Count 103 K/mcL (140-400); Red Blood Count 5.25 M/mcL (4.19-5.50); Segmented Neutrophils % 51.2 %
[2018-12-01 04:05] LABS: Lymphocytes # 2.1 K/mcL (0.6-4.6)
[2018-12-01 04:19] LABS: BUN/Creatinine Ratio 10 (6-26); Blood Urea Nitrogen 8 mg/dL (8-23); Calcium 8.9 mg/dL (8.6-10.3); Carbon Dioxide 25 mEq/L (23-29); Chloride 110 mEq/L (98-107); Glucose 195 mg/dL (70-105); Osmolality,Calculated 296 (280-300); Potassium 3.9 mEq/L (3.5-5.1); Sodium 141 mEq/L (136-145); eGFR For Non-African Americans > 60 (> 60)
[2018-12-01] MEDS: Ipratropium/Albuterol Neb 3 ML IH SCH ×2 (05:19→10:47)
[2018-12-01] MEDS: risperiDONE 1 MG TABLET PO SCH (08:06)
[2018-12-01] MEDS: Furosemide 20 MG TABLET PO SCH (08:06)
[2018-12-01] MEDS: *HR* Dabigatran 150 MG CAPSULE PO SCH (08:07)
[2018-12-01] MEDS: Topiramate 100 MG TABLET PO SCH (08:07)
[2018-12-01] MEDS: Aspirin Enteric Coated 325 MG Tablet PO SCH (08:08)
[2018-12-01] MEDS: Insulin LISPRO 300 UNITS/3 ML VIAL SQ SCH ×2 (08:09→12:22)
[2018-12-01] MEDS ORDERED: Magnesium Oxide 400 MG TABLET PO SCH (09:00)
[2018-12-01] MEDS ORDERED: NON-FORMULARY MEDICATION 1 EACH EACH (Tiotropium Bromide [Spiriva Respimat] 1 PUFF) IH SCH (09:00)
--- NOTE | 2018-12-01 13:37 | Discharge Summary ---
- NOTES TO OUTPATIENT PROVIDER Notes to Outpatient Provider: presented after expereincing syncopal event was seen by cardiology and syncopal workup completed- he did have a drop in BP with poistion change- he also had diarrhea for several days prior to the incident. I suspect this is orthostatic in nature as well as patient has multiple medications that can affect blood pressure as well as make the patient lightheaded. Advised review of med list and possible adjust medications. I did reduce his Lasix as well as Coreg due to low blood pressure. 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 Montes is a 63 year old male past medical history of atrial fibrillation CHF COPD we are disease CVA diabetes or hyperlipidemia hypertension and myocardial infarction pulmonary embolism anxiety bipolar pacemaker/AICD. Patient presented to [facility] ED he resides at assisted living facility he was getting up from dinner when he felt dizzy and fell back into his chair he also expresses left-sided neck pain which he states is chronic. He has had episodes in the past couple of months with syncope and was seen by [facility] had extensive workup and no definitive cause was found. Lab work was obtained which did show some thrombocytopenia which appears to be new but has been stable with no bleeding noted troponins were less than 0.03 urinalysis negative for any infectious process CT angiogram head and neck showed no acute intracranial abnormalities chest x-ray showed no acute cardiopulmonary disease EKG which is ventricular paced. He was given IV fluid orthostatics were obtained which did show a drop in blood pressure however heart rate was stable due to paced rhythm. Cardiology was consulted and they did interrogate pacemaker and no events were noted. Cardiac echo shows EF of 55-60% with normal LV chamber size and function indeterminate diastolic function no significant valvular dysfunction and mildly dilated aortic root and ascending aorta. No ectopy or abnormal rhythms on telemetry during admission Patient does admit that he has been experiencing loose stool for approximately 1 week prior to this incident as well as patient is on Lasix and other medications that can affect blood pressure as well as make patient lightheaded with narcotic as well as psychiatric medications. I did decrease patient's Lasix as well as his beta gary. I did apply ALICIA hose advised patient to change physicians carefully. He has been ambulating without any difficulty in the room tolerating oral intake at this time no episodes of diarrhea. He is hemodynamically stable at this time I advised the patient to follow-up with his primary care provider since this provider knows him best and can adjust medications accordingly. Advised the patient to wear ALICIA hose at all time and to remove at night and to change position slowly. He is ready for discharge at this time. - Time Spent with Patient Total time spent providing and/or coordinating discharge services: - Discharge Medications Prescriptions: Furosemide [Lasix] 20 mg PO BIDDIURETIC #30 tablet Home Medications: Albuterol Sulfate [Ventolin Hfa] 2 puff IH QID PRN 11/29/18 [History] Aspirin Enteric Coated [Aspirin EC] 325 mg PO DAILY 11/29/18 [History] Budesonide/Formoterol 160/4.5 [Symbicort 160/4.5] 2 puff IH BIDR 11/29/18 [History] Buspirone HCl [Buspar] 20 mg PO TID 11/29/18 [History] Cetirizine HCl [24Hour Allergy] 10 mg PO DAILY 11/29/18 [History] Cholestyramine (with Sugar) [Cholestyramine Bulk Powder] 1 scoop PO BID 11/29/18 [History] Dabigatran Etexilate Mesylate [Pradaxa] 150 mg PO BID 11/29/18 [History] Dapagliflozin Propanediol [Farxiga] 10 mg PO DAILY 11/29/18 [History] Duloxetine HCl [Cymbalta] 60 mg PO DAILY 11/29/18 [History] Esomeprazole Magnesium [Nexium] 40 mg PO DAILY 11/29/18 [History] Ferrous Sulfate 325 mg PO BID 11/29/18 [History] Fluticasone Propionate Nasal [Flonase] 2 spray NS DAILY 11/29/18 [History] Furosemide [Lasix] 40 mg PO BID 11/29/18 [History] HydrOXYzine Pamoate [Vistaril] 100 mg PO BID 11/29/18 [History] Insulin DETEMIR [Levemir] 60 unit SQ BID 11/29/18 [History] Levothyroxine Sodium [Levoxyl] 88 mcg PO QAM 11/29/18 [History] Liraglutide [Victoza 3-Scotty] 1.8 mg SQ DAILY 11/29/18 [History] Magnesium Oxide [Magnesium] 400 mg PO DAILY 11/29/18 [History] Midodrine [ProAmatine] 10 mg PO BID 11/29/18 [History] Montelukast [Singulair] 10 mg PO DAILY 11/29/18 [History] Oxycodone HCl/Acetaminophen [Percocet 5-325 mg Tablet] 1 tab PO QID PRN 11/29/18 [History] Potassium Chloride [K-Tab ER] 20 meq PO TID 11/29/18 [History] Pregabalin [Lyrica] 50 mg PO TID 11/29/18 [History] Rosuvastatin Calcium 10 mg PO DAILY 11/29/18 [History] Sertraline [Zoloft] 100 mg PO BID 11/29/18 [History] Tiotropium [place] [Spiriva Respimat] 1 puff IH DAILY 11/29/18 [History] Topiramate [Topamax] 100 mg PO BID 11/29/18 [History] Trazodone HCl 300 mg PO QPM 11/29/18 [History] cloNIDine HCl [CloNIDine HCl] 0.1 mg PO QID PRN 11/29/18 [History] risperiDONE [Risperdal] 2 mg PO BID 11/29/18 [History] Aspirin Enteric Coated [Aspirin EC] 325 mg PO DAILY tablet. 12/01/18 [Rx] Carvedilol [Coreg] 12.5 mg PO BIDWM #30 tablet 12/01/18 [Rx] Furosemide [Lasix] 20 mg PO BIDDIURETIC #30 tablet 01/02/19 [Rx] Allergies/Adverse Reactions: Allergy/AdvReac Type Severity Reaction Status Date / Time aripiprazole [From Abilify] Allergy See Verified 08/16/15 14:31 Comments codeine Allergy See Verified 08/16/15 14:31 Comments gabapentin [From Neurontin] Allergy See Verified 08/16/15 14:31 Comments Date of admission: 11/28/18 23:34 Primary care physician: PCP NONE Consults: 11/29/18 01:06 Consult to Occupational Therapy [CONS] Routine Comment: Evaluate, develop and implement POC Reason for Consult: Syncope episode, with positive orthostatic vital signs. Does patient have active BEDREST order?: No Is patient medically & hemodynamically stable?: Yes Discharging clinician: Maru Hassan Anticipated date of discharge: 12/01/18 - Constitutional Vitals: Temp Pulse Resp BP Pulse Ox 98.3 F 70 18 148/92 97 12/01/18 10:23 12/01/18 10:23 12/01/18 10:48 12/01/18 10:23 12/01/18 10:48 General appearance: Present: cooperative, A&O X 3, pleasant, no acute distress, answers questions appropriately Exam: . - Head Head exam: Present: atraumatic, normocephalic - Eye Eye exam: Present: PERRL, conjuntiva pink, sclera anicteric Pupils: Present: PERRL - Neck Neck exam general surgery: Present: supple, trachea midline. Absent: lymphadenopathy - Respiratory Respiratory exam: Present: CTAB. Absent: accessory muscle use, rales, rhonchi, wheezes - Cardiovascular Cardiovascular exam: Present: RRR, +S1, +S2. Absent: diastolic murmur, gallop, rubs, systolic murmur - GI/Abdominal GI/Abdominal exam: Present: normal bowel sounds, soft, no peritoneal signs. Absent: distended, tenderness - Extremities Exam Extremities exam: Present: warm, radial pulses palpable and symmetrical. Absent: calf tenderness, cyanotic, pedal edema - Neurological Exam Neurological exam: Present: CN II-XII intact, oriented X3, no focal deficits. Absent: pronater drift, facial droop, speech deficit - Skin Skin exam: Present: dry, intact - Patient Status Disposition: Home, Self-Care Condition: Undetermined Functional capacity at discharge: independent ambulation Overall status at discharge: patient is back to baseline - Discharge Instructions Follow Up With: Jose Alfredo Ley MD [Partnered Physician] - 12/09/18 3:00 pm - Diet and Activity Activity: increase activity as tolerated Diet: advance to your usual diet - VTE Documentation of Mechanical Device: Graduated compression elastic hosiery
[2018-12-01 15:14] VITALS: BP 147/90
--- NOTE | 2018-12-01 16:49 | Electrocardiograph Report ---
[address] [address] Test Date: 2018-11-28 Pat Name: Chuy Montes Department: [id number] Room: 3B12 Gender: M [employer] External: : 1955 Requested By: Lawrence Linder Order Number: [id number] Reading MD: Kimo Wells Measurements Intervals [place] Rate: 70 P: 68 [place]: 198 QRS: -83 QRSD: 164 T: 97 QT: 469 QTc: 507 Interpretive Statements Ventricular-paced rhythm Electronically Signed On 12-01-2018 16:47:47 EST by Kimo Wells
== END 2018-12-01 15:20 | disposition home or self-care (01) ==
LOC: EMEROOARM 19:12 → 3BNU 19:12
PROVIDERS: ADMIT Family Medicine; ATTEND Family Medicine

== ENCOUNTER 2019-04-04 17:55 | Observation (INO) ==
--- NOTE | 2019-04-04 18:12 | Emergency Department Note ---
Disposition Clinical Impression: Cardiac pacemaker, Near syncope Chest pain Qualifiers: Chest pain type: unspecified Qualified Code(s): R07.9 - Chest pain, unspecified Disposition: Admitted As Inpatient Condition: Fair Time of Disposition: 20:02 Chest Pain HPI - General Chief Complaint: ED Chest Pain Stated Complaint: Chest pain Time Seen by Provider: 04/04/19 18:03 Source: patient, EMS Mode of arrival: EMS Limitations: no limitations Vital Signs Reviewed: Yes Nursing Notes Reviewed: Yes - History of Present Illness HPI Narrative: Patient presenting to the ED with the chief complaint of chest pain. Patient reports that he has been under a lot of stress recently and has been having intermittent chest pain over the last few days and attributed it to the amount of stress that he is under. He states that today he was just sitting in his chair and he had the abrupt onset of a "grabbing" type squeezing pain in his left chest that made him short of breath, lightheaded, dizzy, near syncopal and nauseated. No vomiting, diarrhea or abdominal pain. States that it lasted 30 seconds to a minute and then resolves. States that he has had "9 heart attacks," but denies any stents or bypasses. He is on Pradaxa for chronic atrial fibrillation. - Related Data Home Medications Medication Instructions Recorded Confirmed Albuterol Sulfate [Ventolin Hfa] 2 puff IH QID PRN 11/29/18 04/05/19 Aspirin Enteric Coated [Aspirin EC] 325 mg PO 0800 11/29/18 04/05/19 Budesonide/Formoterol 160/4.5 2 puff IH 0800,199911/29/18 04/05/19 [Symbicort 160/4.5] Buspirone HCl [Buspar] 20 mg PO 0800,1200,1600 11/29/18 04/05/19 Cetirizine HCl [24Hour Allergy] 10 mg PO 199911/29/18 04/05/19 Cholestyramine (with Sugar) 1 scoop PO 0800,199911/29/18 04/05/19 [Cholestyramine Bulk Powder] Dabigatran Etexilate Mesylate 150 mg PO 0800,1600 11/29/18 04/05/19 [Pradaxa] Dapagliflozin Propanediol [Farxiga] 10 mg PO 199911/29/18 04/05/19 Duloxetine HCl [Cymbalta] 60 mg PO 0800 11/29/18 04/05/19 Esomeprazole Magnesium [Nexium] 40 mg PO 0800 11/29/18 04/05/19 Ferrous Sulfate 325 mg PO 0800,199911/29/18 04/05/19 Fluticasone Propionate Nasal 2 spray NS 0800 11/29/18 04/05/19 [Flonase] Furosemide [Lasix] 40 mg PO 0800,159911/29/18 04/05/19 HydrOXYzine Pamoate [Vistaril] 100 mg PO 0800,199911/29/18 04/05/19 Insulin DETEMIR [Levemir] 60 unit SQ 0800,199911/29/18 04/05/19 Levothyroxine Sodium [Levoxyl] 88 mcg PO 0800 11/29/18 04/05/19 Liraglutide [Victoza 3-Scotty] 1.8 mg SQ 1200 11/29/18 04/05/19 Magnesium Oxide [Magnesium] 400 mg PO 1200 11/29/18 04/05/19 Midodrine [ProAmatine] 10 mg PO 0800,1600 11/29/18 04/05/19 Montelukast [Singulair] 10 mg PO 0800 11/29/18 04/05/19 Oxycodone HCl/Acetaminophen 1 tab PO QID PRN 11/29/18 04/05/19 [Percocet 5-325 mg Tablet] Potassium Chloride [K-Tab ER] 20 meq PO 1200,1600,199911/29/18 04/05/19 Pregabalin [Lyrica] 50 mg PO 0800,1600,199911/29/18 04/05/19 Rosuvastatin Calcium 10 mg PO 0800 11/29/18 04/05/19 Sertraline [Zoloft] 100 mg PO 0800,1600 11/29/18 04/05/19 Tiotropium [place] [Spiriva 1 puff IH 0800 11/29/18 04/05/19 Respimat] Topiramate [Topamax] 100 mg PO 0800,1600 11/29/18 04/05/19 Trazodone HCl 300 mg PO 199911/29/18 04/05/19 cloNIDine HCl [CloNIDine HCl] 0.1 mg PO QID PRN 11/29/18 04/05/19 risperiDONE [Risperdal] 2 mg PO 0800 11/29/18 04/05/19 Carvedilol 12.5 mg PO 0800,199904/05/19 04/05/19 Guaifenesin [Mucinex] 600 mg PO 0800,1600 04/05/19 04/05/19 L. Acidophilus/Pectin, [place] 1 cap PO 0800,199904/05/19 04/05/19 [Acidophilus Probiotic Capsule] Loperamide [Imodium] 2 mg PO QID PRN 04/05/19 04/05/19 Loratadine [Claritin] 10 mg PO 0800 04/05/19 04/05/19 Allergies Allergy/AdvReac Type Severity Reaction Status Date / Time aripiprazole [From Abilify] Allergy See Verified 08/16/15 14:31 Comments codeine Allergy See Verified 08/16/15 14:31 Comments gabapentin [From Neurontin] Allergy See Verified 08/16/15 14:31 Comments Review of Systems: As reviewed in the HPI. All other systems reviewed are negative or normal. Chest Pain PMH - Past Medical History Medical history: Reports: atrial fibrillation, CHF, COPD, coronary artery disease, CVA, diabetes, GERD, hyperlipidemia, hypertension, myocardial infarction, pulmonary embolus, other Surgical history: Reports: pacemaker/AICD Psychiatric history: Reports: anxiety, bipolar, depression, PTSD - Social History Smoking Status: Never smoker Alcohol use: Reports: occasionally Drug use: Reports: none Physical Exam CONSTITUTIONAL: [well appearing, alert and in no acute distress] EYES: [EOMI, clear conjunctiva, PERRLA] HENT: [Normocephalic, atraumatic, moist mucus membranes, normal oropharynx] NECK: [normal inspection, full ROM, trachea midline, no obvious swelling] PULMONARY: [normal lung sounds bilaterally, normal chest rise and fall, no respiratory distress or stridor, no wheezes, no rales, no rhonchi CARDIOVASCULAR: [regular rate, regular rhythm, normal heart sounds, no murmurs, distal extremities are warm and well perfused] GASTROINSTESTINAL: [soft, non-tender, non-rigid, non-distended, no guarding, no rebound, normal bowel sounds] GENITOURINARY/RECTAL: [deferred] NEUROLOGIC: [Alert, oriented x3, normal speech, moves all extremities] EXTREMITIES: [Normal inspection, full ROM, no tenderness, no pedal edema, normal capillary refill] MUSCULOSKELETAL: [no gross deformities, atraumatic] SKIN: [No cyanosis, no diaphoresis, normal color, warm, no rash] PSYCHIATRIC: [normal mood and affect] Course Course Narrative: patient admitted to Dr. Erickson. Vital Signs Temperature 98.7 F 04/04/19 18:04 Pulse Rate 70 04/04/19 18:04 Respiratory Rate 23 04/04/19 18:04 Blood Pressure 126/71 04/04/19 18:04 O2 Sat by Pulse Oximetry 100 04/04/19 18:04 Temperature 98.7 F 04/04/19 18:04 Pulse Rate 70 04/04/19 18:53 Respiratory Rate 20 04/04/19 18:53 Blood Pressure 126/71 04/04/19 18:53 O2 Sat by Pulse Oximetry 96 04/04/19 18:53 Oxygen Delivery Oxygen Delivery Room Air Chest Pain - Medical Records Medical records reviewed: Yes I reviewed the patient's medical records. - Lab Data Lab results reviewed: Yes I reviewed the patient's lab results. Result diagrams: 04/06/19 03:02 04/06/19 03:02 Lab Results 04/04/19 04/04/19 04/04/19 Range/Units 18:41 18:41 18:41 WBC 8.4 (4.3-11.1) K/mcL RBC 5.94 H (4.19-5.50) M/mcL Hgb 15.4 (12.9-16.9) g/dL Hct 51.0 H (37.5-50.1) % MCV 85.9 (83.0-100.0) fL MCH 25.9 L (28.0-33.3) pg MCHC 30.2 L (31.6-35.5) g/dL RDW 17.6 H (11.5-14.5) % Plt Count 101 L (140-400) K/mcL MPV 10.8 (9.4-12.4) fL Immature Gran % 0.4 (0-4) % Seg Neutrophils % 58.2 % Lymphocytes % 30.0 % Monocytes % 7.1 % Eosinophils % 3.6 % Basophils % 0.7 % Neutrophils # 4.9 (1.6-8.9) K/mcL Lymphocytes # 2.5 (0.6-4.6) K/mcL Monocytes # 0.6 (0.0-1.3) K/mcL Eosinophils # 0.3 (0.0-0.6) K/mcL Basophils # 0.1 (0.0-0.2) K/mcL Sodium 139 (136-145) mEq/L Potassium 4.1 (3.5-5.1) mEq/L Chloride 108 H (98-107) mEq/L Carbon Dioxide 24 (23-29) mEq/L BUN 6 L (8-23) mg/dL Creatinine 1.06 (0.70-1.30) mg/dL Est GFR ( Amer) > 60 (> 60) Est GFR (Non-Af Amer) > 60 (> 60) BUN/Creatinine Ratio 6 (6-26) Glucose 127 H (70-105) mg/dL Calculated Osmolality 287 (280-300) Calcium 8.9 (8.6-10.3) mg/dL Troponin I < 0.03 (< 0.04) ng/mL B-Natriuretic Peptide 17 (Less than 100) pg/mL - Radiology Data Radiology results reviewed: Yes I reviewed the patient's radiology results. - EKG Data EKG attestation: Yes I reviewed and interpreted this EKG. EKG results narrative: paced rhythm, no acute ischemic changes. Heart Score - Score History: Moderately Suspicious EKG: Non Specific repolarisation Disturbance Age: 45-65 Risk Factors: Equal/Greater than 3 risk factor or history of atherosclerotic disease Troponin: Less than normal limit HEART Score Total: 5 Attestation Statement - Attestation Attestation: I have seen this patient with the resident physician, I have personally evalua whitney this patient. I had reviewed the chart and document dictation by the resident physician and aM in agreement with the information documented by the resident physician. Please see documentation by the resident physician for complete chart including past medical history, family medical history, review of systems, current history and physical and laboratory and imaging studies. I was present for all procedures, provided direct supervision for all procedures, was present for the entirety of all procedures and provided direct guidance during the procedures. Please see documentation by the resident physician for any procedures performed.
[2019-04-04 19:32] LABS: Basophils # 0.1 K/mcL (0.0-0.2); Basophils % 0.7 %; Eosinophils # 0.3 K/mcL (0.0-0.6); Eosinophils % 3.6 %; Hemoglobin 15.4 g/dL (12.9-16.9); Immature Granulocytes % 0.4 % (0-4); Lymphocytes # 2.5 K/mcL (0.6-4.6); Mean Corpuscular HGB Conc 30.2 g/dL (31.6-35.5); Mean Corpuscular Hemoglobin 25.9 pg (28.0-33.3); Mean Corpuscular Volume 85.9 fL (83.0-100.0); Mean Platelet Volume 10.8 fL (9.4-12.4); Monocytes # 0.6 K/mcL (0.0-1.3); Monocytes % 7.1 %; Neutrophils # 4.9 K/mcL (1.6-8.9); Platelet Count 101 K/mcL (140-400); Red Blood Count 5.94 M/mcL (4.19-5.50); Red Cell Distribution Width 17.6 % (11.5-14.5); Segmented Neutrophils % 58.2 %
[2019-04-04 19:49] LABS: BUN/Creatinine Ratio 6 (6-26); Blood Urea Nitrogen 6 mg/dL (8-23); Calcium 8.9 mg/dL (8.6-10.3); Carbon Dioxide 24 mEq/L (23-29); Chloride 108 mEq/L (98-107); Glucose 127 mg/dL (70-105); Osmolality,Calculated 287 (280-300); Potassium 4.1 mEq/L (3.5-5.1); Sodium 139 mEq/L (136-145); Troponin I < 0.03 ng/mL (< 0.04); eGFR For Non-African Americans > 60 (> 60)
--- NOTE | 2019-04-04 20:08 | Emergency Department Note ---
Disposition Clinical Impression: Cardiac pacemaker, Near syncope Chest pain Qualifiers: Chest pain type: unspecified Qualified Code(s): R07.9 - Chest pain, unspecified Disposition: Admitted As Inpatient Condition: Fair Referrals: Grey Sun [Primary Care Provider] - Forms: ED Satisfaction Letter General Adult HPI - General Chief complaint: ED Chest Pain Stated complaint: Chest pain Time Seen by Provider: 04/04/19 18:03 Source: patient, EMS Mode of arrival: EMS Limitations: no limitations - History of Present Illness Pain Scale: 0 - Related Data Home Medications Medication Instructions Recorded Confirmed Albuterol Sulfate [Ventolin Hfa] 2 puff IH QID PRN 11/29/18 11/29/18 Aspirin Enteric Coated [Aspirin EC] 325 mg PO DAILY 11/29/18 11/29/18 Budesonide/Formoterol 160/4.5 2 puff IH BIDR 11/29/18 11/29/18 [Symbicort 160/4.5] Buspirone HCl [Buspar] 20 mg PO TID 11/29/18 11/29/18 Cetirizine HCl [24Hour Allergy] 10 mg PO DAILY 11/29/18 11/29/18 Cholestyramine (with Sugar) 1 scoop PO BID 11/29/18 11/29/18 [Cholestyramine Bulk Powder] Dabigatran Etexilate Mesylate 150 mg PO BID 11/29/18 11/29/18 [Pradaxa] Dapagliflozin Propanediol [Farxiga] 10 mg PO DAILY 11/29/18 11/29/18 Duloxetine HCl [Cymbalta] 60 mg PO DAILY 11/29/18 11/29/18 Esomeprazole Magnesium [Nexium] 40 mg PO DAILY 11/29/18 11/29/18 Ferrous Sulfate 325 mg PO BID 11/29/18 11/29/18 Fluticasone Propionate Nasal 2 spray NS DAILY 11/29/18 11/29/18 [Flonase] Furosemide [Lasix] 40 mg PO BID 11/29/18 11/29/18 HydrOXYzine Pamoate [Vistaril] 100 mg PO BID 11/29/18 11/29/18 Insulin DETEMIR [Levemir] 60 unit SQ BID 11/29/18 11/29/18 Levothyroxine Sodium [Levoxyl] 88 mcg PO QAM 11/29/18 11/29/18 Liraglutide [Victoza 3-Scotty] 1.8 mg SQ DAILY 11/29/18 11/29/18 Magnesium Oxide [Magnesium] 400 mg PO DAILY 11/29/18 11/29/18 Midodrine [ProAmatine] 10 mg PO BID 11/29/18 11/29/18 Montelukast [Singulair] 10 mg PO DAILY 11/29/18 11/29/18 Oxycodone HCl/Acetaminophen 1 tab PO QID PRN 11/29/18 11/29/18 [Percocet 5-325 mg Tablet] Potassium Chloride [K-Tab ER] 20 meq PO TID 11/29/18 11/29/18 Pregabalin [Lyrica] 50 mg PO TID 11/29/18 11/29/18 Rosuvastatin Calcium 10 mg PO DAILY 11/29/18 11/29/18 Sertraline [Zoloft] 100 mg PO BID 11/29/18 11/29/18 Tiotropium [place] [Spiriva 1 puff IH DAILY 11/29/18 11/29/18 Respimat] Topiramate [Topamax] 100 mg PO BID 11/29/18 11/29/18 Trazodone HCl 300 mg PO QPM 11/29/18 11/29/18 cloNIDine HCl [CloNIDine HCl] 0.1 mg PO QID PRN 11/29/18 11/29/18 risperiDONE [Risperdal] 2 mg PO BID 11/29/18 11/29/18 Previous Rx's Medication Instructions Recorded Aspirin Enteric Coated [Aspirin EC] 325 mg PO DAILY tablet. 12/01/18 Carvedilol [Coreg] 12.5 mg PO BIDWM #30 tablet 12/01/18 Carvedilol [Coreg] 12.5 mg PO BIDWM #30 tablet 12/01/18 Furosemide [Lasix] 20 mg PO BIDDIURETIC #30 tablet 12/01/18 Allergies Allergy/AdvReac Type Severity Reaction Status Date / Time aripiprazole [From Abilify] Allergy See Verified 08/16/15 14:31 Comments codeine Allergy See Verified 08/16/15 14:31 Comments gabapentin [From Neurontin] Allergy See Verified 08/16/15 14:31 Comments Past Medical History - Past Medical History Medical history: Reports: atrial fibrillation, CHF, COPD, coronary artery disease, CVA, diabetes, GERD, hyperlipidemia, hypertension, myocardial infarction, pulmonary embolus, other Surgical history: Reports: pacemaker/AICD Psychiatric history: Reports: anxiety, bipolar, depression, PTSD - Social History Smoking Status: Never smoker Smokeless Tobacco Status: No Alcohol use: Reports: occasionally Drug use: Reports: none Physical Exam - General Limitations: no limitations General appearance: alert Course Vital Signs Temperature 98.7 F 04/04/19 18:04 Pulse Rate 70 04/04/19 18:04 Respiratory Rate 23 04/04/19 18:04 Blood Pressure 126/71 04/04/19 18:04 O2 Sat by Pulse Oximetry 100 04/04/19 18:04 Temperature 98.7 F 04/04/19 18:04 Pulse Rate 70 04/04/19 18:53 Respiratory Rate 20 04/04/19 18:53 Blood Pressure 126/71 04/04/19 18:53 O2 Sat by Pulse Oximetry 96 04/04/19 18:53 Oxygen Delivery Oxygen Delivery Room Air Medical Decision Making - Lab Data Result diagrams: 04/04/19 18:41 04/04/19 18:41 Lab Results 04/04/19 04/04/19 04/04/19 Range/Units 18:41 18:41 18:41 WBC 8.4 (4.3-11.1) K/mcL RBC 5.94 H (4.19-5.50) M/mcL Hgb 15.4 (12.9-16.9) g/dL Hct 51.0 H (37.5-50.1) % MCV 85.9 (83.0-100.0) fL MCH 25.9 L (28.0-33.3) pg MCHC 30.2 L (31.6-35.5) g/dL RDW 17.6 H (11.5-14.5) % Plt Count 101 L (140-400) K/mcL MPV 10.8 (9.4-12.4) fL Immature Gran % 0.4 (0-4) % Seg Neutrophils % 58.2 % Lymphocytes % 30.0 % Monocytes % 7.1 % Eosinophils % 3.6 % Basophils % 0.7 % Neutrophils # 4.9 (1.6-8.9) K/mcL Lymphocytes # 2.5 (0.6-4.6) K/mcL Monocytes # 0.6 (0.0-1.3) K/mcL Eosinophils # 0.3 (0.0-0.6) K/mcL Basophils # 0.1 (0.0-0.2) K/mcL Sodium 139 (136-145) mEq/L Potassium 4.1 (3.5-5.1) mEq/L Chloride 108 H (98-107) mEq/L Carbon Dioxide 24 (23-29) mEq/L BUN 6 L (8-23) mg/dL Creatinine 1.06 (0.70-1.30) mg/dL Est GFR ( Amer) > 60 (> 60) Est GFR (Non-Af Amer) > 60 (> 60) BUN/Creatinine Ratio 6 (6-26) Glucose 127 H (70-105) mg/dL Calculated Osmolality 287 (280-300) Calcium 8.9 (8.6-10.3) mg/dL Troponin I < 0.03 (< 0.04) ng/mL B-Natriuretic Peptide 17 (Less than 100) pg/mL Attestation Statement - Attestation Attestation: I have seen this patient with the resident physician, I have personally evaluated this patient. I had reviewed the chart and document dictation by the resident physician and aM in agreement with the information documented by the resident physician. Please see documentation by the resident physician for complete chart including past medical history, family medical history, review of systems, current history and physical and laboratory and imaging studies. I was present for all procedures, provided direct supervision for all procedures, was present for the entirety of all procedures and provided direct guidance during the procedures. Please see documentation by the resident physician for any procedures performed. Patient presented emergency department with chief complaint of chest pain with associated diaphoresis nausea and shortness of breath. He reports a history of benign MIs in the past but has no stents, reports that this was all related to his history of A. fib. EKG was paced rhythm, borderline appearance to the inferior leads with slightly more prominent ST segment, but no evidence of sgarrbossa criteria, as interpreted by myself. Basic laboratory studies were within acceptable limits. Chest x-ray showed no acute findings, atelectasis in the left lower lobe, h owever patient has prior evidence of atelectasis and nodular abnormality on prior imaging.. Patient is already on a factor X inhibitor with no clinical evidence to suggest DVT or pulmonary embolism, he was admitted to the hospital for further evaluation and management.
[2019-04-04] MEDS ORDERED: Aspirin 81 MG TAB.CHEW PO ONE (22:15)
[2019-04-04] MEDS ORDERED: Naloxone 0.4 MG/ML INJ IVP PRN (23:46)
[2019-04-05] MEDS ORDERED: D5% in Water 1,000 ML IVC PRN (00:19)
[2019-04-05] MEDS ORDERED: *HR* Dextrose 50 % in Water (Syg) 50 ML SYRINGE IVP PRN (00:19)
[2019-04-05] MEDS ORDERED: Dextrose Gel 15 GM/37.5 ML TUBE PO PRN ×2 (00:19)
--- NOTE | 2019-04-05 00:42 | Internal Med History&Physical ---
Date of Encounter: 04/05/19 Time of Encounter: 22:15 Internal Medicine - H&P: HPI Chief complaint: Chest Pain Admitted From: Home ([facility]) Plans for Post Hospital Care: Home History of present illness: Mr. 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 Pain is associated with shortness of breath, dizziness, diaphoresis, and nausea. Pain is improved with nitro and denies any exacerbating factors. States he has been under a lot of stress lately and feels this may be contributing to his chest pain. ER reported EKG as paced rhythm with borderline appearance to the inferior leads with slightly more prominent ST segment without evidence of sgarbossa criteria. ER also obtained chest xray which shows left basilar airspace disease, atelectasis, and or pneumonia. Received dose of aspirin in ER and is pain free at time of my admission. Currently denies any h eadache, numbness, tingling, dizziness, chest pain, shortness of breath, cough, abdominal pain, nausea, bowel or bladder changes. Was admitted to [facility] in October 2018 for syncope. Had echocardiogram completed during admission showing 55-60% EF and pacer device interrogation by cardiology. Reports several past heart catheterizations with most recent in April 2018 at [facility] which he reports being normal. Checks blood sugars regularly which he reports as averaging around 100. Also checks blood pressures regularly and reports systolic has been averaging in the 140's. Follows regularly with PCP monthly, cardiology Dr Miller in [place] every 6 months, pulmonary monthly, and pain management monthly. Past Med Surg Social Fam HX - Past Medical History Medical history: asthma, atrial fibrillation, CHF, COPD, CVA, diabetes, GERD, hyperlipidemia, hypertension, myocardial infarction, pulmonary embolus, other Psychiatric history: anxiety, depression - Past Surgical History Surgical History: cholecystectomy, orthopedic, other, pacemaker/AICD Additional surgical history: eye, Sleep apnea, knee surgery, left shoulder surgery - Social History Smoking Status: Never smoker Smokeless Tobacco Status: No Alcohol use: occasionally Drug use: none - Family History Grandfather Living Status: Hx Family Cardiac Disorders: Yes (heart attack) Mother Living Status: Father Living Status: Still Living Hx Family Neuromuscular Disorders: Yes (parkinsons disease) Internal Medicine - H&P: Meds Albuterol Sulfate [Ventolin Hfa] 2 puff IH QID PRN 11/29/18 [History] Aspirin Enteric Coated [Aspirin EC] 325 mg PO DAILY 11/29/18 [History] Budesonide/Formoterol 160/4.5 [Symbicort 160/4.5] 2 puff IH BIDR 11/29/18 [History] Buspirone HCl [Buspar] 20 mg PO TID 11/29/18 [History] Cetirizine HCl [24Hour Allergy] 10 mg PO DAILY 11/29/18 [History] Cholestyramine (with Sugar) [Cholestyramine Bulk Powder] 1 scoop PO BID 11/29/18 [History] Dabigatran Etexilate Mesylate [Pradaxa] 150 mg PO BID 11/29/18 [History] Dapagliflozin Propanediol [Farxiga] 10 mg PO DAILY 11/29/18 [History] Duloxetine HCl [Cymbalta] 60 mg PO DAILY 11/29/18 [History] Esomeprazole Magnesium [Nexium] 40 mg PO DAILY 11/29/18 [History] Ferrous Sulfate 325 mg PO BID 11/29/18 [History] Fluticasone Propionate Nasal [Flonase] 2 spray NS DAILY 11/29/18 [History] Furosemide [Lasix] 40 mg PO BID 11/29/18 [History] HydrOXYzine Pamoate [Vistaril] 100 mg PO BID 11/29/18 [History] Insulin DETEMIR [Levemir] 60 unit SQ BID 11/29/18 [History] Levothyroxine Sodium [Levoxyl] 88 mcg PO QAM 11/29/18 [History] Liraglutide [Victoza 3-Scotty] 1.8 mg SQ DAILY 11/29/18 [History] Magnesium Oxide [Magnesium] 400 mg PO DAILY 11/29/18 [History] Midodrine [ProAmatine] 10 mg PO BID 11/29/18 [History] Montelukast [Singulair] 10 mg PO DAILY 11/29/18 [History] Oxycodone HCl/Acetaminophen [Percocet 5-325 mg Tablet] 1 tab PO QID PRN 11/29/18 [History] Potassium Chloride [K-Tab ER] 20 meq PO TID 11/29/18 [History] Pregabalin [Lyrica] 50 mg PO TID 11/29/18 [History] Rosuvastatin Calcium 10 mg PO DAILY 11/29/18 [History] Sertraline [Zoloft] 100 mg PO BID 11/29/18 [History] Tiotropium [place] [Spiriva Respimat] 1 puff IH DAILY 11/29/18 [History] Topiramate [Topamax] 100 mg PO BID 11/29/18 [History] Trazodone HCl 300 mg PO QPM 11/29/18 [History] cloNIDine HCl [CloNIDine HCl] 0.1 mg PO QID PRN 11/29/18 [History] risperiDONE [Risperdal] 2 mg PO BID 11/29/18 [History] Aspirin Enteric Coated [Aspirin EC] 325 mg PO DAILY tablet. 12/01/18 [Rx] Carvedilol [Coreg] 12.5 mg PO BIDWM #30 tablet 12/01/18 [Rx] Furosemide [Lasix] 20 mg PO BIDDIURETIC #30 tablet 12/01/18 [Rx] Carvedilol [Coreg] 12.5 mg PO QDPC 04/04/19 [History] Allergy/AdvReac Type Severity Reaction Status Date / Time aripiprazole [From Abilify] Allergy See Verified 08/16/15 14:31 Comments codeine Allergy See Verified 08/16/15 14:31 Comments gabapentin [From Neurontin] Allergy See Verified 08/16/15 14:31 Comments All Systems PM: A 10-system review of systems was performed and is negative for pertinent findin gs except as documented above in the HPI. - Constitutional Vitals: Temp Pulse Resp BP Pulse Ox 98.1 F 70 16 149/89 95 04/04/19 23:25 04/04/19 23:25 04/04/19 23:25 04/04/19 23:25 04/04/19 23:25 Exam: General: Alert and oriented. Skin:Normal color, no rash, no lesions. HEENT:Pupils equal, round and reactive. Cardiovascular:Heart sounds distant, no rubs, murmurs or gallops. No JVD. Pulse regular. Slight chest wall tenderness on palpation. Lungs:Normal breath sounds, no wheezes or crackles. Abdomen:Soft, non-tender, no rigidity. Extremities:No deformity, no edema or tenderness, no joint swelling or clubbing. Neurological:Normal cognition and motor skills. Pulses:Carotid and radial pulses normal +2. Rest of the physical exam is non contributory. Internal Med - H&P Results - Labs CBC & Chem 7: 04/04/19 18:41 04/04/19 18:41 Labs: Short CBC 04/04/19 Range/Units 18:41 WBC 8.4 (4.3-11.1) K/mcL Hgb 15.4 (12.9-16.9) g/dL Hct 51.0 H (37.5-50.1) % Plt Count 101 L (140-400) K/mcL Neutrophils # 4.9 (1.6-8.9) K/mcL BMP 04/04/19 18:41 Sodium 139 Potassium 4.1 Chloride 108 H Carbon Dioxide 24 BUN 6 L Creatinine 1.06 Glucose 127 H Calcium 8.9 Cardiac Enzymes 04/04/19 Range/Units 18:41 Troponin I < 0.03 (< 0.04) ng/mL - Impressions ITS Impressions Chest X-Ray 04/04/19 18:08 IMPRESSION: Left basilar airspace disease, atelectasis and/or pneumonia D/ / Christiane Torres Cha, MD / Christiane Torres Cha, MD Interpreting Provider: Christiane Torres Cha, MD - Assessment and Plan (1) Chest pain Current Visit: Yes Status: Acute Assessment and plan: Currently pain free following nitroglycerin. Continuous cardiac monitoring. Initial troponin negative, serial troponins ordered. Echocardiogram in October 2018 showing 55-60%EF. Patient reports heart cath in April 2018 at [facility] that he states was normal. Cardiology consult ordered, will need called in a.m. Qualifiers: Chest pain type: unspecified Qualified Code(s): R07.9 - Chest pain, unspecified (2) Abnormal chest x-ray Current Visit: Yes Status: Acute Assessment and plan: Chest xray shows left basilar airspace disease, atelectasis and or pneumonia. No signs of respiratory infection at this time. Monitor respiratory status or for signs of infection closely. (3) Thrombocytopenia Current Visit: Yes Status: Chronic Assessment and plan: Platelets currently 101, last on file was 118 in January 2019. No signs of bleeding. Repeat labs ordered. (4) Diabetes mellitus Current Visit: Yes Status: Chronic Assessment and plan: Hold home medications. Sliding scale insulin ordered Accuchecks q6 hours. Qualifiers: Diabetes mellitus type: type 2 Qualified Code(s): E11.9 - Type 2 diabetes mellitus without complications (5) Chronic back pain Current Visit: Yes Status: Acute Assessment and plan: Continue home medications once verified. Qualifiers: Back pain location: back pain in unspecified location Qualified Code(s): M54.9 - Dorsalgia, unspecified; G89.29 - Other chronic pain (6) DVT prophylaxis Current Visit: No Status: Acute Assessment and plan: Continue home Pradaxa. - Time Spent With Patient Total time spent is greater than 50% in coordination of care (as documented) at patient's floor/unit and/or counseling patient:
[2019-04-05] MEDS: Insulin LISPRO 300 UNITS/3 ML VIAL SQ SCH ×3 (06:12→18:36)
[2019-04-05] MEDS: *HR* OxyCODONE/APAP 5/325 TABLET PO PRN ×3 (06:17→17:15)
[2019-04-05 07:02] LABS: Basophils % 0.6 %; Eosinophils % 4.3 %; Monocytes % 7.9 %
[2019-04-05 07:03] LABS: Eosinophils # 0.3 K/mcL (0.0-0.6); Hematocrit 50.3 % (37.5-50.1); Hemoglobin 15.1 g/dL (12.9-16.9); Immature Granulocytes % 0.5 % (0-4); Immature Platelets 4.1 % (1.1-6.1); Lymphocytes # 2.1 K/mcL (0.6-4.6); Lymphocytes % 31.9 %; Mean Corpuscular Hemoglobin 25.5 pg (28.0-33.3); Mean Corpuscular Volume 85.1 fL (83.0-100.0); Monocytes # 0.5 K/mcL (0.0-1.3); Neutrophils # 3.6 K/mcL (1.6-8.9); Red Blood Count 5.91 M/mcL (4.19-5.50); Red Cell Distribution Width 16.7 % (11.5-14.5); Segmented Neutrophils % 54.8 %
[2019-04-05 07:08] LABS: Platelet Count 79 K/mcL (140-400)
[2019-04-05 07:28] LABS: BUN/Creatinine Ratio 9 (6-26); Blood Urea Nitrogen 8 mg/dL (8-23); Calcium 8.8 mg/dL (8.6-10.3); Carbon Dioxide 22 mEq/L (23-29); Chloride 110 mEq/L (98-107); Glucose 158 mg/dL (70-105); Osmolality,Calculated 294 (280-300); Potassium 3.8 mEq/L (3.5-5.1); Sodium 141 mEq/L (136-145); Troponin I < 0.03 ng/mL (< 0.04); eGFR For Non-African Americans > 60 (> 60)
[2019-04-05] MEDS ORDERED: cloNIDine HCl 0.1 MG TABLET PO PRN (08:08)
[2019-04-05] MEDS ORDERED: Furosemide 40 MG TABLET PO SCH (09:00)
[2019-04-05] MEDS ORDERED: Regadenoson 0.4 MG/5 ML SYRINGE IVP ONE (09:13)
[2019-04-05] MEDS ORDERED: Perflutren Lipid Microsphere 1.3 ML in 0.9 % Sodium Chloride 8.7 ML IVP ONE (09:21)
--- NOTE | 2019-04-05 10:52 | Cardiology Consult Note ---
<Rubens Dunaway - Last Filed: 04/05/19 14:34> Date of Encounter: 04/05/19 Time of Encounter: 12:00 Assessment and Plan (1) Chest pain Current Visit: Yes Status: Acute -Patient presents to the ED because of intermittent sharp chest pain radiating to the left neck and left shoulder. -Troponins were negative on admission. -EKG was negative for any ST-T changes/Heart strain/block/LVH/ WPW/ Brugada - Patient has a HEART score of 5 . (Risk of MACE 12-16.6%) -Patient has had several heart rate catheterizations in the past with no stent placements, with most recent in April 2018 at [facility]. Records have been requested. -Patient received a dose of Nitroglycerine and aspirin in the ED which helped resolve his chest pain -His echo from Oct 2018 showed an LVEF of 55-60% which showed indeterminate diastolic dysfunction. -Currently on aspirin and beta gary at home but is not on statin. -Patient underwent non-exercise nuclear stress test this morning, results are pending. PLAN: -Repeat echo pending - Lipid panel pending - We will consider putting patient on high intensity statin every alternate day to minimize risk of ACS in the future - Depending upon the outcome of the stress test will decide if patient is an appropriate candidate for [facility] Qualifiers: Chest pain type: unspecified Qualified Code(s): R07.9 - Chest pain, unspecified (2) Afib Current Visit: Yes Status: Acute - Patient has a history of chronic A. fib with a CHADVAsc score of 5 (CHF: +1, HTN:+1, CVA: +2, DM : 1+) -He has a pacer and is on Pradaxa at home. -Rate controlled on Coreg 2.5 mg , HR: 71 - Continue to monitor Qualifiers: Qualified Code(s): I48.2 - Chronic atrial fibrillation (3) CAD (coronary artery disease) Current Visit: Yes Status: Acute - Patient has a history of CAD. -As per notes from admission, patient has had 9 MIs in the past. -Patient has had multiple cardiac catheterizations in the no stent placements. -Patient has risk factors which predisposes him to atherosclerotic cardiovascular disease like hypertension, hyperlipidemia and diabetes. -Patient is on beta blockers and aspirin at home but not on statins. -Patient underwent stress test this morning and results are pending. -Prior Echo from October 2018 showed a LVEF of 55-60% with indeterminate diastolic dysfunction . Repeat Echo pending Qualifiers: Qualified Code(s): I25.10 - Atherosclerotic heart disease of [place] coronary artery without angina pectoris Discussion w patient/family: The assessment and plan as outlined above was discussed with the patient and/or family members who expressed understanding and agreement. All questions were answered. Thank you for involving us in the care of your patient. Please call with any questions. History of Present Illness Consult date: 04/05/19 History of present illness: Mr. Montes is a 63 year old male with a past medical history of AK*9 with no stent placements ?, hypertension, CHF hyperlipidemia, COPD, asthma, chronic atrial fibrillaton (on pradaxa) CAD and CVA 3 who presented to the ER yesterday with a 2 day of the left sided chest pain radiating to the left neck and shoulder area. Patient also endorses shortness of breath and dizziness accompanying with his chest pain. Patient describes the chest pain as intermittent sharp pain on the left of his chest and is non-positional in nature which began on Thursday when he was walking back from lunch. Patient was given nitroglycerin 1 and aspirin the ER which helped improve his chest pain. Patient denies any history of recent trauma, history of acid reflux/GERD, or any recent changes to his medications. He endorses he has a lot of social stressors recently like helping his friends move from one place to another and he attributes his chest pain to all these ongoing stressors. Patient also has a history of cardiac catheterization in the past the last one being in April 2018 when everything was normal. Last echocardiogram was in October 2018 which showed an EF of 55-60% with concerns for indeterminate diastolic dysfunction. Follows up with Dr. Miller at [facility] because of his Hx of AK. Workup in the ER showed the patient's EKG was negative for any ST-T changes, LVH, HOCM, WPW, heart strain/block. He had negative serial troponins, normal BNP of 17. Patient was admitted to the hospital for further management. Past Med Surg Social Fam HX - Past Medical History Medical history: asthma, atrial fibrillation, CHF, COPD, CVA, diabetes, GERD, hyperlipidemia, hypertension, myocardial infarction, pulmonary embolus, other Psychiatric history: anxiety, depression - Past Surgical History Surgical History: cholecystectomy, orthopedic, other, pacemaker/AICD Additional surgical history: eye, Sleep apnea, knee surgery, left shoulder surgery - Social History Smoking Status: Never smoker Smokeless Tobacco Status: No Alcohol use: occasionally Drug use: none - Family History Grandfather Living Status: Hx Family Cardiac Disorders: Yes (heart attack) Mother Living Status: Father Living Status: Still Living Hx Family Neuromuscular Disorders: Yes (parkinsons disease) Medications and Allergies Albuterol Sulfate [Ventolin Hfa] 2 puff IH QID PRN 11/29/18 [History] Aspirin Enteric Coated [Aspirin EC] 325 mg PO DAILY 11/29/18 [History] Budesonide/Formoterol 160/4.5 [Symbicort 160/4.5] 2 puff IH BIDR 11/29/18 [History] Buspirone HCl [Buspar] 20 mg PO TID 11/29/18 [History] Cetirizine HCl [24Hour Allergy] 10 mg PO DAILY 11/29/18 [History] Cholestyramine (with Sugar) [Cholestyramine Bulk Powder] 1 scoop PO BID 11/29/18 [History] Dabigatran Etexilate Mesylate [Pradaxa] 150 mg PO BID 11/29/18 [History] Dapagliflozin Propanediol [Farxiga] 10 mg PO DAILY 11/29/18 [History] Duloxetine HCl [Cymbalta] 60 mg PO DAILY 11/29/18 [History] Esomeprazole Magnesium [Nexium] 40 mg PO DAILY 11/29/18 [History] Ferrous Sulfate 325 mg PO BID 11/29/18 [History] Fluticasone Propionate Nasal [Flonase] 2 spray NS DAILY 11/29/18 [History] Furosemide [Lasix] 40 mg PO BID 11/29/18 [History] HydrOXYzine Pamoate [Vistaril] 100 mg PO BID 11/29/18 [History] Insulin DETEMIR [Levemir] 60 unit SQ BID 11/29/18 [History] Levothyroxine Sodium [Levoxyl] 88 mcg PO QAM 11/29/18 [History] Liraglutide [Victoza 3-Scotty] 1.8 mg SQ DAILY 11/29/18 [History] Magnesium Oxide [Magnesium] 400 mg PO DAILY 11/29/18 [History] Midodrine [ProAmatine] 10 mg PO BID 11/29/18 [History] Montelukast [Singulair] 10 mg PO DAILY 11/29/18 [History] Oxycodone HCl/Acetaminophen [Percocet 5-325 mg Tablet] 1 tab PO QID PRN 11/29/18 [History] Potassium Chloride [K-Tab ER] 20 meq PO TID 11/29/18 [History] Pregabalin [Lyrica] 50 mg PO TID 11/29/18 [History] Rosuvastatin Calcium 10 mg PO DAILY 11/29/18 [History] Sertraline [Zoloft] 100 mg PO BID 11/29/18 [History] Tiotropium [place] [Spiriva Respimat] 1 puff IH DAILY 11/29/18 [History] Topiramate [Topamax] 100 mg PO BID 11/29/18 [History] Trazodone HCl 300 mg PO HS 11/29/18 [History] cloNIDine HCl [CloNIDine HCl] 0.1 mg PO QID PRN 11/29/18 [History] risperiDONE [Risperdal] 2 mg PO BID 11/29/18 [History] Aspirin Enteric Coated [Aspirin EC] 325 mg PO DAILY tablet. 12/01/18 [Rx] Carvedilol [Coreg] 12.5 mg PO BIDWM #30 tablet 12/01/18 [Rx] Furosemide [Lasix] 20 mg PO BIDDIURETIC #30 tablet 12/01/18 [Rx] Carvedilol [Coreg] 12.5 mg PO QDPC 04/04/19 [History] Allergy/AdvReac Type Severity Reaction Status Date / Time aripiprazole [From Abilify] Allergy See Verified 08/16/15 14:31 Comments codeine Allergy See Verified 08/16/15 14:31 Comments gabapentin [From Neurontin] Allergy See Verified 08/16/15 14:31 Comments All Systems Review: The remainder of the systems were reviewed and are negative - Constitutional Constitutional: no fatigue - Cardiovascular Cardiovascular: chest pain with exertion - Respiratory Respiratory: wheezing - Psychiatric Psychiatric: anxiety, depression Physical Examination Vital Signs, Last 4 Hours Temp Pulse Resp BP Pulse Ox 04/05/19 08:02 98.0 F 71 18 120/75 98 Other: Gen.: Vitals noted. No acute distress. Alert, awake and oriented * 3 , well developed, well-nourished resting comfortably in bed. HEENT: oropharynx clear, Normocephalic, atraumatic, MMM Neck: supple, no JVD, no lymphadenopathy, no carotid bruit. Cardiac: Afib (chronic- rate controlled), +S1/S2, No BLE edema, PMI non- displaced Pulmonary: CTAB , no rales/ rhonchi or wheezing, equal chest expansion, unlabored breathing Abdomen: non-tender, non-distended, no guarding. No organomegaly, no pulsatile masses, Skin: warm and dry, no visible lesions. Feels warm, clammy, no rashes, no lesions, no erythema MSK: no joint swelling noted, gait not assessed while in bed. Non tender calf or clubbing, no cyanosis/clubbing/ or edema Neuro: A&O, moves all extremities, no focal deficits, sensation intact. Psych: good mentation Results 04/05/19 06:50 04/05/19 06:50 Lab Results 04/04/19 04/04/19 04/04/19 18:41 18:41 18:41 WBC 8.4 Hgb 15.4 Hct 51.0 H Plt Count 101 L Sodium 139 Potassium 4.1 Chloride 108 H Carbon Dioxide 24 BUN 6 L Creatinine 1.06 Glucose 127 H Calcium 8.9 Troponin I < 0.03 B-Natriuretic Peptide 17 04/05/19 04/05/19 04/05/19 01:07 06:50 06:50 WBC 6.6 Hgb 15.1 Hct 50.3 H Plt Count 79 L Sodium 141 Potassium 3.8 Chloride 110 H Carbon Dioxide 22 L BUN 8 Creatinine 0.93 Glucose 158 H Calcium 8.8 Troponin I < 0.03 < 0.03 B-Natriuretic Peptide Consult Discharge Plan - Plan Referrals: Grey Sun [Primary Care Provider] - <Mary Jane Reid - Last Filed: 04/05/19 14:50> Date of Encounter: 04/05/19 - Attending Attestation I examined this patient and my medical decision-making was reviewed with the medical lab specialist. I agree with the documented findings, disposition and t reatment plan as described. Mr. Montes presents with atypical chest pain. Serial troponins negative. ECG negative for acute findings. Reportedly has CAD and multiple AK without PCI. Most recent LHC from [facility] April 2018 did not warrant intervention - requesting records. Await stress test results. Further recommendations to follow. Assessment and Plan Discussion w patient/family: The assessment and plan as outlined above was discussed with the patient and/or family members who expressed understanding and agreement. All questions were answered. Thank you for involving us in the care of your patient. Please call with any questions. History of Present Illness History of present illness: Mr. Montes is a 63 year old male All Systems Review: The remainder of the systems were reviewed and are negative Physical Examination Vital Signs, Last 4 Hours Temp Pulse Resp BP Pulse Ox 04/05/19 11:10 97.6 F 71 16 122/71 94 Results 04/05/19 06:50 04/05/19 06:50 Lab Results 04/04/19 04/04/19 04/04/19 18:41 18:41 18:41 WBC 8.4 Hgb 15.4 Hct 51.0 H Plt Count 101 L Sodium 139 Potassium 4.1 Chloride 108 H Carbon Dioxide 24 BUN 6 L Creatinine 1.06 Glucose 127 H Calcium 8.9 Total Bilirubin AST ALT Alkaline Phosphatase Troponin I < 0.03 B-Natriuretic Peptide 17 04/05/19 04/05/19 04/05/19 01:07 06:50 06:50 WBC 6.6 Hgb 15.1 Hct 50.3 H Plt Count 79 L Sodium 141 Potassium 3.8 Chloride 110 H Carbon Dioxide 22 L BUN 8 Creatinine 0.93 Glucose 158 H Calcium 8.8 Total Bilirubin AST ALT Alkaline Phosphatase Troponin I < 0.03 < 0.03 B-Natriuretic Peptide 04/05/19 13:59 WBC Hgb Hct Plt Count Sodium Potassium Chloride Carbon Dioxide BUN Creatinine Glucose Calcium Total Bilirubin 0.7 AST 26 ALT 26 Alkaline Phosphatase 78 Troponin I B-Natriuretic Peptide
[2019-04-05] MEDS: Tiotropium 18 MCG inhalation IH SCH (10:56)
[2019-04-05] MEDS: Budesonide/Formoterol 160/4.5 1 PUFF INH IH SCH ×2 (10:56→20:14)
[2019-04-05] MEDS: Magnesium Oxide 400 MG TABLET PO SCH (12:59)
[2019-04-05] MEDS: risperiDONE 1 MG TABLET PO SCH ×2 (12:59→21:34)
[2019-04-05] MEDS: BUSPIRONE HCL 10 MG TABLET PO SCH ×3 (12:59→21:34)
[2019-04-05] MEDS: hydrOXYzine pamoate 25 MG CAPSULE PO SCH ×2 (13:00→21:35)
[2019-04-05] MEDS: Aspirin Enteric Coated 325 MG Tablet PO SCH (13:00)
[2019-04-05] MEDS: Cholestyramine 4 GM POWD.PACK PO SCH ×2 (13:00→21:33)
[2019-04-05] MEDS: Loratadine 10 MG TABLET PO SCH (13:00)
[2019-04-05] MEDS: Pregabalin 50 MG CAPSULE PO SCH ×3 (13:00→21:34)
[2019-04-05] MEDS: *HR* Dabigatran 150 MG CAPSULE PO SCH ×2 (13:00→21:34)
[2019-04-05] MEDS: Insulin DETEMIR 100 UNIT/ML X5UNITS SQ SCH ×2 (13:01→21:35)
[2019-04-05] MEDS: Topiramate 100 MG TABLET PO SCH ×2 (13:02→21:34)
[2019-04-05] MEDS: Fluticasone Propionate Nasal 50 MCG/SPRAY BOTTLE NS SCH (13:41)
[2019-04-05 14:38] LABS: Albumin 3.5 g/dL (3.5-5.7); Albumin/Globulin Ratio 1.5 (1.1-2.2); Bilirubin,Direct 0.3 mg/dL (0.0-0.2); Bilirubin,Indirect 0.4 mg/dL (0.0-1.2); Bilirubin,Total 0.7 mg/dL (0.3-1.0); Chol/HDL Ratio 4.4 (0-4.9); Globulin 2.3 g/dL (2.4-3.5); Total Protein 5.8 g/dL (6.4-8.9)
--- NOTE | 2019-04-05 15:29 | Electrocardiograph Report ---
[address] [address] Test Date: 2019-04-04 Pat Name: Chuy Montes Department: [id number] Room: 3B Gender: M Upper [place] L[place] Hand: : 1955 Requested By: Lawrence Linder Order Number: [id number] Reading MD: Hayder Cottrell Measurements Intervals [place] Rate: 70 P: [place]: QRS: -70 QRSD: 156 T: 100 QT: 473 QTc: 511 Interpretive Statements Afib/flutter and ventricular-paced rhythm No further analysis attempted due to paced rhythm Electronically Signed On 04-05-2019 15:27:45 EDT by Hayder Cottrell
[2019-04-05] MEDS: Furosemide 20 MG TABLET PO SCH (17:15)
[2019-04-05] MEDS ORDERED: traZODone 50 MG TABLET PO SCH ×2 (18:00→21:00)
[2019-04-06] MEDS: Insulin LISPRO 300 UNITS/3 ML VIAL SQ SCH ×3 (00:23→12:06)
[2019-04-06] MEDS: *HR* OxyCODONE/APAP 5/325 TABLET PO PRN ×2 (00:23→05:49)
[2019-04-06 03:37] LABS: Hematocrit 48.2 % (37.5-50.1); Hemoglobin 14.7 g/dL (12.9-16.9); Immature Platelets 3.4 % (1.1-6.1); Mean Corpuscular HGB Conc 30.5 g/dL (31.6-35.5); Mean Corpuscular Hemoglobin 25.9 pg (28.0-33.3); Mean Platelet Volume 10.9 fL (9.4-12.4); Red Blood Count 5.67 M/mcL (4.19-5.50); Red Cell Distribution Width 16.7 % (11.5-14.5)
[2019-04-06 03:52] LABS: BUN/Creatinine Ratio 10 (6-26); Blood Urea Nitrogen 9 mg/dL (8-23); Carbon Dioxide 22 mEq/L (23-29); Chloride 110 mEq/L (98-107); Glucose 148 mg/dL (70-105); Osmolality,Calculated 293 (280-300); Sodium 141 mEq/L (136-145); eGFR For Non-African Americans > 60 (> 60)
[2019-04-06] MEDS: Budesonide/Formoterol 160/4.5 1 PUFF INH IH SCH (08:08)
[2019-04-06] MEDS: Tiotropium 18 MCG inhalation IH SCH (08:10)
[2019-04-06] MEDS: hydrOXYzine pamoate 25 MG CAPSULE PO SCH (08:28)
[2019-04-06] MEDS: risperiDONE 1 MG TABLET PO SCH (08:28)
[2019-04-06] MEDS: Pregabalin 50 MG CAPSULE PO SCH (08:29)
[2019-04-06] MEDS: Topiramate 100 MG TABLET PO SCH (08:29)
[2019-04-06] MEDS: *HR* Dabigatran 150 MG CAPSULE PO SCH (08:29)
[2019-04-06] MEDS: Furosemide 20 MG TABLET PO SCH (08:29)
[2019-04-06] MEDS: Aspirin Enteric Coated 325 MG Tablet PO SCH (08:29)
[2019-04-06] MEDS: Loratadine 10 MG TABLET PO SCH (08:29)
[2019-04-06] MEDS: Magnesium Oxide 400 MG TABLET PO SCH (08:30)
[2019-04-06] MEDS: BUSPIRONE HCL 10 MG TABLET PO SCH (08:30)
[2019-04-06] MEDS: Cholestyramine 4 GM POWD.PACK PO SCH (08:38)
[2019-04-06] MEDS: Insulin DETEMIR 100 UNIT/ML X5UNITS SQ SCH (08:38)
[2019-04-06] MEDS: Fluticasone Propionate Nasal 50 MCG/SPRAY BOTTLE NS SCH (08:39)
[2019-04-06 11:36] VITALS: BP 117/76
--- NOTE | 2019-04-06 12:46 | Event Note ---
Date of Encounter: 04/06/19 Time of Encounter: 12:45 - Cardiology Event Note TTE with LVEF normal. Stress test negative for ischemia or infarct. Discussed and reviewed with , cardiology will sign off. 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
--- NOTE | 2019-04-06 13:19 | Discharge Summary ---
- NOTES TO OUTPATIENT PROVIDER Notes to Outpatient Provider: Admitted with intermittent chest pain was seen by cardiology patient did undergo a stress test which was negative for any ischemia or [id number] with cardiology as outpatient Orders not resulted at time of discharge: Pending orders 04/05/19 08:18 NM hector perf SPECT multi [NM] Routine Date of Encounter: 04/06/19 Time of Encounter: 13:16 - Discharge Diagnosis (1) Chest pain Priority: Primary Status: Acute Qualifiers: Chest pain type: unspecified Qualified Code(s): R07.9 - Chest pain, unspecified (2) Diabetes mellitus Priority: Secondary Status: Chronic Qualifiers: Diabetes mellitus type: type 2 Qualified Code(s): E11.9 - Type 2 diabetes mellitus without complications (3) Thrombocytopenia Priority: Secondary Status: Chronic (4) Chronic back pain Priority: Secondary Status: Acute Qualifiers: Back pain location: back pain in unspecified location Qualified Code(s): M54.9 - Dorsalgia, unspecified; G89.29 - Other chronic pain (5) Abnormal chest x-ray Priority: Secondary Status: Acute Hospital course: Mr. Montes is a 63 year old male with history of them with no stent placement hypertension CHF hyperlipidemia COPD asthma chronic atrial fibrillation on Primaxin CAD CVA 3 presented to [facility] ER with complaining of 2 day history of left-sided chest pain rating to left neck and shoulder. Also endorses associated symptoms shortness of breath and dizziness. Troponins were negative [address]-T wave abnormalities cardiology was consulted patient did undergo cardiac stress test which was negative for any ischemia or infarct cardiology recommending follow-up with primary maintenance equipment operator Dr. Miller. On admission was noted patient did have trouble cytopenia which appears to be chronic. Patient states that he is aware that he has cirrhosis and primary care provider setting up follow-up with GI. Currently hepatic panel within normal limits. Patient will have lab work checked as outpatient. During admission chest x-ray did show left basilar airspace disease atelectasis and/or pneumonia patient did not display any signs or symptoms of respiratory infections no white count or fever. He is monitored by pulmonology every 6 month for pulmonary nodule, which she will continue. He will also follow-up with primary care provider Currently patient denies any chest pain this time he is hemodynamically stable and is ready for discharge. - Time Spent with Patient Total time spent providing and/or coordinating discharge services: - Discharge Medications Prescriptions: Continued Liraglutide [Victoza 3-Scotty] 1.8 mg SQ 1200 Levothyroxine Sodium [Levoxyl] 88 mcg PO 0800 Ferrous Sulfate 325 mg PO 0800,2000 Aspirin Enteric Coated [Aspirin EC] 325 mg PO 0800 Montelukast [Singulair] 10 mg PO 0800 Topiramate [Topamax] 100 mg PO 0800,1600 risperiDONE [Risperdal] 2 mg PO 0800 Magnesium Oxide [Magnesium] 400 mg PO 1200 Midodrine [ProAmatine] 10 mg PO 0800,1600 Trazodone HCl 300 mg PO 2000 Sertraline [Zoloft] 100 mg PO 0800,1600 Fluticasone Propionate Nasal [Flonase] 2 spray NS 0800 Albuterol Sulfate [Ventolin Hfa] 2 puff IH QID PRN PRN Reason: Shortness Of Breath Budesonide/Formoterol 160/4.5 [Symbicort 160/4.5] 2 puff IH 0800,1999 Tiotropium [place] [Spiriva Respimat] 1 puff IH 0800 Pregabalin [Lyrica] 50 mg PO 0800,1600,1999 Potassium Chloride [K-Tab ER] 20 meq PO 1200,1600,1999 Rosuvastatin Calcium 10 mg PO 0800 Dabigatran Etexilate Mesylate [Pradaxa] 150 mg PO 0800,1600 Furosemide [Lasix] 40 mg PO 0800,1600 Esomeprazole Magnesium [Nexium] 40 mg PO 0800 Buspirone HCl [Buspar] 20 mg PO 0800,1200,1600 Cetirizine HCl [24Hour Allergy] 10 mg PO 2000 Cholestyramine (with Sugar) [Cholestyramine Bulk Powder] 1 scoop PO 0800,1999 cloNIDine HCl [CloNIDine HCl] 0.1 mg PO QID PRN PRN Reason: Hypertension Dapagliflozin Propanediol [Farxiga] 10 mg PO 2000 Duloxetine HCl [Cymbalta] 60 mg PO 0800 HydrOXYzine Pamoate [Vistaril] 100 mg PO 0800,2000 Insulin DETEMIR [Levemir] 60 unit SQ 0800,1999 Oxycodone HCl/Acetaminophen [Percocet 5-325 mg Tablet] 1 tab PO QID PRN PRN Reason: Pain Carvedilol 12.5 mg PO 0800,1999 Guaifenesin [Mucinex] 600 mg PO 0800,1600 L. Acidophilus/Pectin, Neal [Acidophilus Probiotic Capsule] 1 cap PO 0800,1999 Loperamide [Imodium] 2 mg PO QID PRN PRN Reason: Diarrhea Loratadine [Claritin] 10 mg PO 0800 Home Medications: Albuterol Sulfate [Ventolin Hfa] 2 puff IH QID PRN 11/29/18 [History] Aspirin Enteric Coated [Aspirin EC] 325 mg PO 0800 11/29/18 [History] Budesonide/Formoterol 160/4.5 [Symbicort 160/4.5] 2 puff IH 08,199911/29/18 [History] Buspirone HCl [Buspar] 20 mg PO 0800,1200,1600 11/29/18 [History] Cetirizine HCl [24Hour Allergy] 10 mg PO 199911/29/18 [History] Cholestyramine (with Sugar) [Cholestyramine Bulk Powder] 1 scoop PO 0800,199911/29/18 [History] Dabigatran Etexilate Mesylate [Pradaxa] 150 mg PO 0800,1600 11/29/18 [History] Dapagliflozin Propanediol [Farxiga] 10 mg PO 199911/29/18 [History] Duloxetine HCl [Cymbalta] 60 mg PO 0800 11/29/18 [History] Esomeprazole Magnesium [Nexium] 40 mg PO 0800 11/29/18 [History] Ferrous Sulfate 325 mg PO 0800,199911/29/18 [History] Fluticasone Propionate Nasal [Flonase] 2 spray NS 0811/29/18 [History] Furosemide [Lasix] 40 mg PO 0800,1600 11/29/18 [History] HydrOXYzine Pamoate [Vistaril] 100 mg PO 0800,199911/29/18 [History] Insulin DETEMIR [Levemir] 60 unit SQ 0800,199911/29/18 [History] Levothyroxine Sodium [Levoxyl] 88 mcg PO 0800 11/29/18 [History] Liraglutide [Victoza 3-Scotty] 1.8 mg SQ 1200 11/29/18 [History] Magnesium Oxide [Magnesium] 400 mg PO 1200 11/29/18 [History] Midodrine [ProAmatine] 10 mg PO 0800,1600 11/29/18 [History] Montelukast [Singulair] 10 mg PO 0800 11/29/18 [History] Oxycodone HCl/Acetaminophen [Percocet 5-325 mg Tablet] 1 tab PO QID PRN 11/29/18 [History] Potassium Chloride [K-Tab ER] 20 meq PO 1200,1600,199911/29/18 [History] Pregabalin [Lyrica] 50 mg PO 0800,1600,199911/29/18 [History] Rosuvastatin Calcium 10 mg PO 0800 11/29/18 [History] Sertraline [Zoloft] 100 mg PO 0800,1600 11/29/18 [History] Tiotropium [place] [Spiriva Respimat] 1 puff IH 0800 11/29/18 [History] Topiramate [Topamax] 100 mg PO 0800,1600 11/29/18 [History] Trazodone HCl 300 mg PO 199911/29/18 [History] cloNIDine HCl [CloNIDine HCl] 0.1 mg PO QID PRN 11/29/18 [History] risperiDONE [Risperdal] 2 mg PO 0800 11/29/18 [History] Carvedilol 12.5 mg PO 0800,199904/05/19 [History] Guaifenesin [Mucinex] 600 mg PO 0800,1600 04/05/19 [History] L. Acidophilus/Pectin, [place] [Acidophilus Probiotic Capsule] 1 cap PO 0800,199904/05/19 [History] Loperamide [Imodium] 2 mg PO QID PRN 04/05/19 [History] Loratadine [Claritin] 10 mg PO 0800 04/05/19 [History] Allergies/Adverse Reactions: Allergy/AdvReac Type Severity Reaction Status Date / Time aripiprazole [From Abilify] Allergy See Verified 08/16/15 14:31 Comments codeine Allergy See Verified 08/16/15 14:31 Comments gabapentin [From Neurontin] Allergy See Verified 08/16/15 14:31 Comments Date of admission: 04/04/19 20:28 Primary care physician: Grey Sun Consults: 04/04/19 23:49 Consult to Cardiology [CONS] Routine Comment: Consulting Provider: Cardiology Ozan Reason for Consult: Intermittent chest pain over past 2 days releived with nitro. Follows with Dr Miller cardiology in [place]. Reports history of MN x9 but no stents or previous cardiac procedures, also has pacemaker and afib. Had echocardiogram last completed at [facility] in October 2018 with 55-60%EF. Reports last heart cath in April 2018 that was normal at [facility]. Call Completed: No Discharging clinician: Maru Hassan Anticipated date of discharge: 04/06/19 - Constitutional Vitals: Temp Pulse Resp BP Pulse Ox 97.3 F L 72 16 117/76 93 04/06/19 11:35 04/06/19 11:35 04/06/19 11:35 04/06/19 11:35 04/06/19 11:35 Exam: General: Alert and oriented. Skin:Normal color, no rash, no lesions. HEENT:Pupils equal, round and reactive. Cardiovascular:Heart sounds distant, no rubs, murmurs or gallops. No JVD. Pulse regular. Slight chest wall tenderness on palpation. Lungs:Normal breath sounds, no wheezes or crackles. Abdomen:Soft, non-tender, no rigidity. Extremities:No deformity, no edema or tenderness, no joint swelling or clubbing. Neurological:Normal cognition and motor skills. Pulses:Carotid and radial pulses normal +2. Rest of the physical exam is non contributory. - Patient Status Disposition: Home, Self-Care Condition: Fair Functional capacity at discharge: independent ambulation Overall status at discharge: patient is back to baseline - Ambulatory Orders Ambulatory Orders: Complete Blood Count [HEME] Time Frame: 04/11/19, Facility: [facility], Location: Lab - Discharge Instructions Instructions: Atrial Fibrillation (DC), Chest Pain (DC) Follow Up With: Winifred Santacruz, DIRECTOR HAIR [Advanced Practice Nurse] - (Will call patient for time and date of visit ) Grey Sun [Primary Care Provider] - 04/12/19 1:20 pm - Diet and Activity Activity: increase activity as tolerated Diet: advance to your usual diet
== END 2019-04-06 15:08 | disposition home or self-care (01) ==
LOC: 3BNU 17:55 → EMEROOARM 17:55 → 3BNU 22:19
PROVIDERS: ADMIT Pediatrics; ATTEND Pediatrics

== ENCOUNTER 2019-10-07 17:31 | Inpatient (IN) ==
[2019-10-07 18:01] LABS: Immature Granulocytes % 0.3 % (0-4); Red Cell Distribution Width 14.6 % (11.5-14.5)
[2019-10-07 18:03] LABS: Basophils # 0.1 K/mcL (0.0-0.2); Eosinophils # 0.3 K/mcL (0.0-0.6); Eosinophils % 5.1 %; Hematocrit 48.7 % (37.5-50.1); Hemoglobin 16.2 g/dL (12.9-16.9); Immature Platelets 5.2 % (1.1-6.1); Lymphocytes # 1.9 K/mcL (0.6-4.6); Lymphocytes % 30.2 %; Mean Corpuscular HGB Conc 33.3 g/dL (31.6-35.5); Mean Corpuscular Hemoglobin 28.8 pg (28.0-33.3); Mean Corpuscular Volume 86.7 fL (83.0-100.0); Mean Platelet Volume 10.9 fL (9.4-12.4); Monocytes # 0.5 K/mcL (0.0-1.3); Monocytes % 7.7 %; Neutrophils # 3.5 K/mcL (1.6-8.9); Red Blood Count 5.62 M/mcL (4.19-5.50); Segmented Neutrophils % 55.7 %; White Blood Count 6.3 K/mcL (4.3-11.1)
[2019-10-07 18:05] LABS: Platelet Count 86 K/mcL (140-400)
[2019-10-07 18:22] LABS: BUN/Creatinine Ratio 9 (6-26); Blood Urea Nitrogen 8 mg/dL (8-23); Carbon Dioxide 25 mEq/L (23-29); Chloride 106 mEq/L (98-107); Glucose 187 mg/dL (70-105); Osmolality,Calculated 293 (280-300); Potassium 4.1 mEq/L (3.5-5.1); Sodium 140 mEq/L (136-145); eGFR For African Americans > 60 (> 60); eGFR For Non-African Americans > 60 (> 60)
[2019-10-07 18:23] LABS: Troponin I < 0.03 ng/mL (< 0.04)
[2019-10-07] MEDS ORDERED: Naloxone 0.4 MG/ML INJ IVP PRN (19:41)
[2019-10-07] MEDS ORDERED: Ipratropium/Albuterol Neb 3 ML IH PRN (23:01)
[2019-10-07] MEDS ORDERED: Furosemide 40 MG/4 ML VIAL IVP ONE (23:06)
[2019-10-07] MEDS: *HR* OxyCODONE/APAP 5/325 TABLET PO PRN (23:56)
[2019-10-08 03:06] LABS: INR 1.2; Prothrombin Time 13.9 Seconds (9.4-12.1)
[2019-10-08 03:08] LABS: Activated Partial Thrombo Time 49.4 Seconds (26.0-36.0)
[2019-10-08 03:10] LABS: Red Cell Distribution Width 14.5 % (11.5-14.5)
[2019-10-08 03:11] LABS: Hematocrit 48.4 % (37.5-50.1); Hemoglobin 16.2 g/dL (12.9-16.9); Immature Platelets 6.2 % (1.1-6.1); Mean Corpuscular HGB Conc 33.5 g/dL (31.6-35.5); Mean Corpuscular Hemoglobin 28.5 pg (28.0-33.3); Mean Corpuscular Volume 85.1 fL (83.0-100.0); Mean Platelet Volume 11.1 fL (9.4-12.4); Red Blood Count 5.69 M/mcL (4.19-5.50); White Blood Count 6.6 K/mcL (4.3-11.1)
[2019-10-08 03:21] LABS: Alanine Aminotransferase 19 Units/L (7-52); Albumin 3.7 g/dL (3.5-5.7); Albumin/Globulin Ratio 1.3 (1.1-2.2); Alkaline Phosphatase 90 Units/L (34-104); Aspartate Amino Transferase 27 Units/L (13-39); BUN/Creatinine Ratio 8 (6-26); Bilirubin,Total 0.8 mg/dL (0.3-1.0); Blood Urea Nitrogen 8 mg/dL (8-23); Calcium 8.8 mg/dL (8.6-10.3); Carbon Dioxide 25 mEq/L (23-29); Chloride 103 mEq/L (98-107); Chol/HDL Ratio 4.4 (0-4.9); Cholesterol 124 mg/dL (< 200); Globulin 2.8 g/dL (2.4-3.5); Glucose 257 mg/dL (70-105); HDL Cholesterol 28 mg/dL (40-59); LDL Cholesterol,Calculated 62 mg/dL (0-99); Magnesium 1.9 mg/dL (1.6-2.6); Osmolality,Calculated 291 (280-300); Potassium 3.4 mEq/L (3.5-5.1); Sodium 137 mEq/L (136-145); Total Protein 6.5 g/dL (6.4-8.9); Triglycerides 170 mg/dL (< 150); eGFR For African Americans > 60 (> 60); eGFR For Non-African Americans > 60 (> 60)
[2019-10-08] MEDS ORDERED: D5% in Water 1,000 ML IVC PRN (04:49)
[2019-10-08] MEDS ORDERED: *HR* Dextrose 50 % in Water (Syg) 50 ML SYRINGE IVP PRN (04:49)
[2019-10-08] MEDS ORDERED: Dextrose Gel 15 GM/37.5 ML TUBE PO PRN ×2 (04:49)
[2019-10-08] MEDS ORDERED: Insulin LISPRO 300 UNITS/3 ML VIAL SQ SCH (06:00)
[2019-10-08] MEDS ORDERED: Perflutren Lipid Microsphere 1.3 ML in 0.9 % Sodium Chloride 8.7 ML IVP ONE (07:27)
[2019-10-08] MEDS: Aspirin Enteric Coated 81 MG Tablet PO SCH (13:16)
[2019-10-08] MEDS: *HR* Dabigatran 150 MG CAPSULE PO SCH ×3 (13:16→20:37)
[2019-10-08] MEDS: Insulin LISPRO 300 UNITS/3 ML VIAL SQ SCH ×3 (13:17→20:40)
[2019-10-08] MEDS: Pregabalin 50 MG CAPSULE PO SCH ×3 (13:18→20:38)
[2019-10-08] MEDS: *HR* OxyCODONE/APAP 5/325 TABLET PO PRN (16:39)
[2019-10-08] MEDS ORDERED: traZODone 50 MG TABLET PO SCH (20:00)
[2019-10-08] MEDS: risperiDONE 1 MG TABLET PO SCH (20:38)
[2019-10-08] MEDS: Insulin DETEMIR 100 UNIT/ML X5UNITS SQ SCH (20:39)
[2019-10-09] MEDS: Insulin LISPRO 300 UNITS/3 ML VIAL SQ SCH ×4 (10:10→22:07)
[2019-10-09] MEDS: Aspirin Enteric Coated 81 MG Tablet PO SCH (10:11)
[2019-10-09] MEDS: *HR* OxyCODONE/APAP 5/325 TABLET PO PRN ×2 (10:11→19:43)
[2019-10-09] MEDS: *HR* Dabigatran 150 MG CAPSULE PO SCH ×2 (10:11→22:06)
[2019-10-09] MEDS: Pregabalin 50 MG CAPSULE PO SCH ×3 (10:12→22:07)
[2019-10-09] MEDS ORDERED: traZODone 50 MG TABLET PO SCH (21:00)
[2019-10-09] MEDS: Insulin DETEMIR 100 UNIT/ML X5UNITS SQ SCH (22:06)
[2019-10-09] MEDS: risperiDONE 1 MG TABLET PO SCH (22:07)
[2019-10-10] MEDS: Insulin LISPRO 300 UNITS/3 ML VIAL SQ SCH ×3 (09:24→17:14)
[2019-10-10] MEDS: *HR* Dabigatran 150 MG CAPSULE PO SCH (09:25)
[2019-10-10] MEDS: Pregabalin 50 MG CAPSULE PO SCH ×2 (09:25→15:40)
[2019-10-10] MEDS: Aspirin Enteric Coated 81 MG Tablet PO SCH (09:25)
[2019-10-10] MEDS: *HR* OxyCODONE/APAP 5/325 TABLET PO PRN (09:25)
[2019-10-10 17:52] VITALS: BP 133/91
[2019-10-10] MEDS ORDERED: traZODone 50 MG TABLET PO SCH (21:00)
== END 2019-10-10 18:20 | DRG 312 ==
LOC: 2NENU 17:31 → EMEROOARM 17:31 → SUATTDRO 20:24 → 2NENU 21:08
PROVIDERS: ADMIT Internal Medicine; ATTEND Internal Medicine

== ENCOUNTER 2019-12-12 15:24 | Inpatient (IN) ==
[2019-12-12] MEDS ORDERED: Ipratropium/Albuterol Neb 3 ML IH STA (15:55)
[2019-12-12] MEDS ORDERED: Ondansetron 4 MG/2 ML VIAL IVP STA (15:55)
[2019-12-12] MEDS ORDERED: Aspirin 81 MG TAB.CHEW PO ONE (15:55)
[2019-12-12 16:11] LABS: Basophils # 0.1 K/mcL (0.0-0.2); Basophils % 0.8 %; Eosinophils # 0.3 K/mcL (0.0-0.6); Eosinophils % 4.4 %; Hematocrit 47.7 % (37.5-50.1); Hemoglobin 16.6 g/dL (12.9-16.9); Immature Granulocytes % 0.3 % (0-4); Lymphocytes # 1.6 K/mcL (0.6-4.6); Lymphocytes % 24.6 %; Mean Corpuscular HGB Conc 34.8 g/dL (31.6-35.5); Mean Corpuscular Hemoglobin 30.8 pg (28.0-33.3); Mean Corpuscular Volume 88.5 fL (83.0-100.0); Mean Platelet Volume 11.5 fL (9.4-12.4); Monocytes # 0.6 K/mcL (0.0-1.3); Monocytes % 9.7 %; Neutrophils # 3.8 K/mcL (1.6-8.9); Platelet Count 105 K/mcL (140-400); Red Blood Count 5.39 M/mcL (4.19-5.50); Red Cell Distribution Width 15.2 % (11.5-14.5); Segmented Neutrophils % 60.2 %; White Blood Count 6.3 K/mcL (4.3-11.1)
[2019-12-12] MEDS ORDERED: methylPREDNISolone 125 MG/2 ML VIAL IVP ONE (16:26)
[2019-12-12 16:31] LABS: Alanine Aminotransferase 16 Units/L (7-52); Albumin 3.5 g/dL (3.5-5.7); Albumin/Globulin Ratio 1.3 (1.1-2.2); Alkaline Phosphatase 83 Units/L (34-104); Aspartate Amino Transferase 25 Units/L (13-39); BUN/Creatinine Ratio 10 (6-26); Bilirubin,Direct 0.2 mg/dL (0.0-0.2); Bilirubin,Indirect 0.5 mg/dL (0.0-1.0); Bilirubin,Total 0.7 mg/dL (0.3-1.0); Blood Urea Nitrogen 8 mg/dL (8-23); Calcium 8.8 mg/dL (8.6-10.3); Carbon Dioxide 21 mEq/L (23-29); Chloride 109 mEq/L (98-107); Globulin 2.6 g/dL (2.4-3.5); Glucose 197 mg/dL (70-105); Osmolality,Calculated 292 (280-300); Potassium 3.7 mEq/L (3.5-5.1); Sodium 139 mEq/L (136-145); Total Protein 6.1 g/dL (6.4-8.9); Troponin I < 0.03 ng/mL (< 0.04); eGFR For African Americans > 60 (> 60); eGFR For Non-African Americans > 60 (> 60)
[2019-12-12] MEDS ORDERED: Azithromycin 500 MG in 0.9 % Sodium Chloride 250 ML IVPB ONE (16:35)
[2019-12-12] MEDS ORDERED: cefTRIAXone 2,000 MG in Water for inj. (sterile) 20 ML IVP ONE (16:35)
[2019-12-12] MEDS ORDERED: Naloxone 0.4 MG/ML INJ IVP PRN (17:09)
[2019-12-12] MEDS ORDERED: D5% in Water 1,000 ML IVC PRN (19:15)
[2019-12-12] MEDS ORDERED: *HR* Dextrose 50 % in Water (Syg) 50 ML SYRINGE IVP PRN (19:15)
[2019-12-12] MEDS ORDERED: Dextrose Gel 15 GM/37.5 ML TUBE PO PRN ×2 (19:15)
[2019-12-12] MEDS ORDERED: Benzonatate 100 MG CAPSULE PO PRN (21:44)
[2019-12-12] MEDS: Ipratropium/Albuterol Neb 3 ML IH SCH (22:05)
[2019-12-12] MEDS ORDERED: Nitroglycerin 0.4 MG TAB.SUBL SL PRN (22:45)
[2019-12-13] MEDS: *HR* OxyCODONE/APAP 5/325 TABLET PO PRN (00:08)
[2019-12-13 03:22] LABS: Eosinophils % 0.3 %; Immature Granulocytes % 0.5 % (0-4); Red Cell Distribution Width 15.1 % (11.5-14.5)
[2019-12-13 03:24] LABS: Basophils % 0.3 %; Hematocrit 48.7 % (37.5-50.1); Hemoglobin 16.5 g/dL (12.9-16.9); Lymphocytes % 15.9 %; Mean Corpuscular HGB Conc 33.9 g/dL (31.6-35.5); Mean Corpuscular Hemoglobin 30.2 pg (28.0-33.3); Mean Platelet Volume 11.2 fL (9.4-12.4); Monocytes # 0.1 K/mcL (0.0-1.3); Monocytes % 1.4 %; Neutrophils # 5.2 K/mcL (1.6-8.9); Red Blood Count 5.47 M/mcL (4.19-5.50); Segmented Neutrophils % 81.6 %; White Blood Count 6.4 K/mcL (4.3-11.1)
[2019-12-13 03:28] LABS: Platelet Count 85 K/mcL (140-400)
[2019-12-13 03:41] LABS: BUN/Creatinine Ratio 13 (6-26); Blood Urea Nitrogen 12 mg/dL (8-23); Calcium 8.9 mg/dL (8.6-10.3); Carbon Dioxide 19 mEq/L (23-29); Chloride 107 mEq/L (98-107); Glucose 331 mg/dL (70-105); Osmolality,Calculated 297 (280-300); Potassium 4.1 mEq/L (3.5-5.1); Sodium 137 mEq/L (136-145); eGFR For African Americans > 60 (> 60); eGFR For Non-African Americans > 60 (> 60)
[2019-12-13] MEDS: Ipratropium/Albuterol Neb 3 ML IH SCH ×4 (04:16→21:56)
[2019-12-13] MEDS ORDERED: Insulin LISPRO 300 UNITS/3 ML VIAL SQ SCH ×2 (08:00→21:00)
[2019-12-13] MEDS ORDERED: NON-FORMULARY MEDICATION 1 EACH EACH (Liraglutide [Victoza 3-Pak] 1.8 MG) SQ SCH (09:00)
[2019-12-13] MEDS: *HR* Dabigatran 150 MG CAPSULE PO SCH ×2 (10:26→21:27)
[2019-12-13] MEDS: hydrOXYzine pamoate 25 MG CAPSULE PO SCH ×3 (10:26→20:28)
[2019-12-13] MEDS: Furosemide 20 MG TABLET PO SCH (10:26)
[2019-12-13] MEDS: Pregabalin 50 MG CAPSULE PO SCH ×3 (10:26→20:28)
[2019-12-13] MEDS: carvediloL 6.25 MG TABLET PO SCH ×2 (10:26→18:46)
[2019-12-13] MEDS: Aspirin Enteric Coated 81 MG Tablet PO SCH (10:27)
[2019-12-13] MEDS: Insulin LISPRO 300 UNITS/3 ML VIAL SQ SCH ×3 (10:27→18:49)
[2019-12-13] MEDS: Tiotropium 18 MCG inhalation IH SCH (10:44)
[2019-12-13] MEDS: Budesonide/Formoterol 160/4.5 1 PUFF INH IH SCH ×2 (10:44→21:56)
[2019-12-13] MEDS ORDERED: cefTRIAXone 2,000 MG in Water for inj. (sterile) 20 ML IVP SCH (18:00)
[2019-12-13] MEDS ORDERED: Azithromycin 500 MG in 0.9 % Sodium Chloride 250 ML IVPB SCH (18:00)
[2019-12-13] MEDS ORDERED: Insulin DETEMIR 100 UNIT/ML X5UNITS SQ SCH ×2 (21:00)
[2019-12-13] MEDS ORDERED: risperiDONE 1 MG TABLET PO SCH (21:00)
[2019-12-13] MEDS ORDERED: traZODone 50 MG TABLET PO SCH (21:00)
[2019-12-14] MEDS: *HR* OxyCODONE/APAP 5/325 TABLET PO PRN (00:51)
[2019-12-14 02:56] LABS: Basophils # 0.1 K/mcL (0.0-0.2); Basophils % 0.7 %; Eosinophils # 0.1 K/mcL (0.0-0.6); Eosinophils % 1.9 %; Hematocrit 45.8 % (37.5-50.1); Hemoglobin 15.7 g/dL (12.9-16.9); Immature Granulocytes % 0.4 % (0-4); Lymphocytes # 2.1 K/mcL (0.6-4.6); Lymphocytes % 27.6 %; Mean Corpuscular HGB Conc 34.3 g/dL (31.6-35.5); Mean Corpuscular Hemoglobin 30.1 pg (28.0-33.3); Mean Corpuscular Volume 87.7 fL (83.0-100.0); Mean Platelet Volume 11.2 fL (9.4-12.4); Monocytes # 0.7 K/mcL (0.0-1.3); Monocytes % 8.8 %; Neutrophils # 4.5 K/mcL (1.6-8.9); Platelet Count 106 K/mcL (140-400); Red Blood Count 5.22 M/mcL (4.19-5.50); Red Cell Distribution Width 14.9 % (11.5-14.5); Segmented Neutrophils % 60.6 %; White Blood Count 7.5 K/mcL (4.3-11.1)
[2019-12-14 03:18] LABS: BUN/Creatinine Ratio 17 (6-26); Blood Urea Nitrogen 15 mg/dL (8-23); Calcium 8.8 mg/dL (8.6-10.3); Carbon Dioxide 23 mEq/L (23-29); Chloride 109 mEq/L (98-107); Glucose 244 mg/dL (70-105); Osmolality,Calculated 299 (280-300); Potassium 3.8 mEq/L (3.5-5.1); Sodium 140 mEq/L (136-145); eGFR For African Americans > 60 (> 60); eGFR For Non-African Americans > 60 (> 60)
[2019-12-14] MEDS: Ipratropium/Albuterol Neb 3 ML IH SCH ×2 (03:53→10:42)
[2019-12-14] MEDS ORDERED: methylPREDNISolone 125 MG/2 ML VIAL IVP ONE (08:50)
[2019-12-14] MEDS: Aspirin Enteric Coated 81 MG Tablet PO SCH (08:57)
[2019-12-14] MEDS: *HR* Dabigatran 150 MG CAPSULE PO SCH (08:57)
[2019-12-14] MEDS: Furosemide 20 MG TABLET PO SCH (08:57)
[2019-12-14] MEDS: Pregabalin 50 MG CAPSULE PO SCH (08:57)
[2019-12-14] MEDS: carvediloL 6.25 MG TABLET PO SCH (08:57)
[2019-12-14] MEDS: hydrOXYzine pamoate 25 MG CAPSULE PO SCH (08:57)
[2019-12-14] MEDS: Insulin LISPRO 300 UNITS/3 ML VIAL SQ SCH ×2 (08:58→13:25)
[2019-12-14] MEDS: Budesonide/Formoterol 160/4.5 1 PUFF INH IH SCH (10:42)
[2019-12-14] MEDS: Tiotropium 18 MCG inhalation IH SCH (10:43)
[2019-12-14 11:25] VITALS: BP 145/88
== END 2019-12-14 15:14 | disposition home health service (06) | DRG 190 ==
LOC: EMEROOARM 15:24 → 3BNU 15:24 → SUATTDRO 12-13 21:22
PROVIDERS: ADMIT Internal Medicine; ATTEND Pharmacist

== ENCOUNTER 2021-02-11 13:54 | Observation (INO) ==
[2021-02-11] MEDS ORDERED: Isovue-370 500 ML BOTTLE IVP ONE ×2 (14:35)
[2021-02-11] MEDS ORDERED: *HR* FentaNYL (PF) 100 MCG/2 ML VIAL IVP ONE (14:40)
[2021-02-11 14:51] LABS: Basophils # 0.1 K/mcL (0.0-0.2); Basophils % 0.8 %; Eosinophils # 0.2 K/mcL (0.0-0.6); Eosinophils % 2.5 %; Immature Granulocytes % 0.5 % (0-4); Lymphocytes # 1.5 K/mcL (0.6-4.6); Lymphocytes % 20.1 %; Mean Corpuscular HGB Conc 31.9 g/dL (31.6-35.5); Mean Corpuscular Hemoglobin 28.7 pg (28.0-33.3); Mean Platelet Volume 12.1 fL (9.4-12.4); Monocytes # 0.7 K/mcL (0.0-1.3); Monocytes % 9.1 %; Platelet Count 102 K/mcL (140-400); Red Blood Count 5.22 M/mcL (4.19-5.50); Red Cell Distribution Width 13.8 % (11.5-14.5); White Blood Count 7.5 K/mcL (4.3-11.1)
[2021-02-11 15:16] LABS: Alanine Aminotransferase 43 Units/L (7-52); Albumin 3.7 g/dL (3.5-5.7); Albumin/Globulin Ratio 1.2 (1.1-2.2); Alkaline Phosphatase 118 Units/L (34-104); Aspartate Amino Transferase 51 Units/L (13-39); BUN/Creatinine Ratio 11 (6-26); Bilirubin,Direct 0.3 mg/dL (0.0-0.2); Bilirubin,Indirect 0.6 mg/dL (0.0-1.0); Bilirubin,Total 0.9 mg/dL (0.3-1.0); Blood Urea Nitrogen 12 mg/dL (8-23); Calcium 9.3 mg/dL (8.6-10.3); Carbon Dioxide 24 mEq/L (23-29); Chloride 104 mEq/L (98-107); Globulin 3.2 g/dL (2.4-3.5); Glucose 296 mg/dL (70-105); Magnesium 2.1 mg/dL (1.6-2.6); Osmolality,Calculated 291 (280-300); Sodium 135 mEq/L (136-145); Total Protein 6.9 g/dL (6.4-8.9); Troponin I < 0.03 ng/mL (< 0.04); eGFR For African Americans > 60 (> 60); eGFR For Non-African Americans > 60 (> 60)
[2021-02-11 15:32] LABS: Bilirubin,Urine Negative (Negative); Blood,Urine Negative (Negative); Clarity,Urine Clear (Clear); Color,Urine Colorless (Yellow); Glucose,Urine (UA) >=1000 mg/dL (Normal); Ketones,Urine Negative (Negative); Leukocyte Esterase,Urine Moderate (Negative); Mucus,Urine Few per lpf (None-Few); Nitrite,Urine Negative (Negative); Protein,Urine Negative (Neg-Trace); RBC,Urine 0-3 per hpf (0-3); Specific Gravity,Urine 1.012 (1.010-1.025); Urobilinogen,Urine Normal (Normal); WBC,Urine 50-100 per hpf (0-3)
[2021-02-11] MEDS ORDERED: cefTRIAXone 1,000 MG in Water for inj. (sterile) 10 ML IVP ONE (15:47)
[2021-02-11] MEDS ORDERED: Ondansetron 4 MG/2 ML VIAL IVP PRN (16:50)
[2021-02-11] MEDS ORDERED: Acetaminophen 325 MG TABLET PO PRN (16:50)
[2021-02-11] MEDS ORDERED: D5% in Water 1,000 ML IVC PRN (16:57)
[2021-02-11] MEDS ORDERED: Dextrose Gel 15 GM/37.5 ML TUBE PO PRN ×2 (16:57)
[2021-02-11] MEDS ORDERED: *HR* Dextrose 50 % in Water (Vial) 50 ML VIAL IVP PRN (16:57)
[2021-02-11] MEDS ORDERED: Perflutren Lipid Microsphere 1.3 ML in 0.9 % Sodium Chloride 8.7 ML IVP PRN (17:55)
[2021-02-11] MEDS ORDERED: Insulin LISPRO 300 UNITS/3 ML VIAL SUBQ SCH (21:00)
[2021-02-11] MEDS ORDERED: Insulin DETEMIR 100 UNIT/ML X5UNITS SUBQ SCH (21:00)
[2021-02-11] MEDS ORDERED: Ketorolac 15 MG/ML VIAL IVP ONE (21:47)
[2021-02-12] MEDS: *HR* Dabigatran 150 MG CAPSULE PO SCH ×2 (02:21→11:29)
[2021-02-12] MEDS: Insulin LISPRO 300 UNITS/3 ML VIAL SUBQ SCH ×3 (02:21→13:12)
[2021-02-12] MEDS: *HR* OxyCODONE/APAP 5/325 TABLET PO PRN ×3 (05:28→17:36)
[2021-02-12 06:07] LABS: Hematocrit 46.3 % (37.5-50.1); Hemoglobin 14.8 g/dL (12.9-16.9); Immature Platelets 6.4 % (1.1-6.1); Mean Corpuscular Hemoglobin 28.5 pg (28.0-33.3); Mean Platelet Volume 11.5 fL (9.4-12.4); Red Blood Count 5.2 M/mcL (4.19-5.50); Red Cell Distribution Width 13.7 % (11.5-14.5); White Blood Count 6.9 K/mcL (4.3-11.1)
[2021-02-12] MEDS ORDERED: Regadenoson 0.4 MG/5 ML SYRINGE IVP ONE (06:19)
[2021-02-12 06:28] LABS: BUN/Creatinine Ratio 14 (6-26); Blood Urea Nitrogen 14 mg/dL (8-23); Carbon Dioxide 23 mEq/L (23-29); Chloride 107 mEq/L (98-107); Glucose 156 mg/dL (70-105); Osmolality,Calculated 292 (280-300); Phosphorous 3.3 mg/dL (2.7-4.5); Potassium 3.4 mEq/L (3.5-5.1); Sodium 139 mEq/L (136-145); eGFR For African Americans > 60 (> 60); eGFR For Non-African Americans > 60 (> 60)
[2021-02-12] MEDS ORDERED: cefTRIAXone 1,000 MG in Water for inj. (sterile) 10 ML IVP SCH (09:00)
[2021-02-12] MEDS ORDERED: predniSONE 5 MG TABLET PO SCH (13:15)
[2021-02-12] MEDS ORDERED: Aspirin Enteric Coated 81 MG Tablet PO SCH (13:15)
[2021-02-12] MEDS ORDERED: risperiDONE 1 MG TABLET PO SCH (13:45)
[2021-02-12] MEDS ORDERED: Pregabalin 50 MG CAPSULE PO SCH (15:00)
[2021-02-12 16:44] VITALS: BP 155/81
[2021-02-12] MEDS ORDERED: Furosemide 20 MG TABLET PO SCH (17:00)
[2021-02-12] MEDS ORDERED: carvediloL 6.25 MG TABLET PO SCH (17:00)
[2021-02-12] MEDS ORDERED: traZODone 50 MG TABLET PO SCH (21:00)
[2021-02-12] MEDS ORDERED: Topiramate 100 MG TABLET PO SCH (21:00)
== END 2021-02-12 17:42 | disposition home or self-care (01) ==
LOC: EMEROOARM 13:54 → 3ANU 13:54 → SUATTDRO 17:06 → 3ANU 18:06
PROVIDERS: ADMIT Family Medicine; ATTEND Internal Medicine

== ENCOUNTER 2022-02-10 17:00 | Inpatient (IN) ==
[2022-02-10] MEDS ORDERED: Aspirin 325 MG TABLET PO ONE (17:20)
[2022-02-10] MEDS ORDERED: Morphine Sulfate 2 MG/ML SYRINGE IVP ONE (17:21)
[2022-02-10 17:46] LABS: Basophils # 0.1 K/mcL (0.0-0.2); Basophils % 0.7 %; Eosinophils # 0.3 K/mcL (0.0-0.6); Eosinophils % 3.2 %; Hematocrit 36.3 % (37.5-50.1); Hemoglobin 10.7 g/dL (12.9-16.9); Immature Granulocytes % 0.4 % (0-4); Lymphocytes # 1.8 K/mcL (0.6-4.6); Lymphocytes % 22.5 %; Mean Corpuscular HGB Conc 29.5 g/dL (31.6-35.5); Mean Corpuscular Hemoglobin 22.6 pg (28.0-33.3); Mean Corpuscular Volume 76.7 fL (83.0-100.0); Mean Platelet Volume 10.9 fL (9.4-12.4); Monocytes # 0.7 K/mcL (0.0-1.3); Monocytes % 8.8 %; Neutrophils # 5.3 K/mcL (1.6-8.9); Platelet Count 102 K/mcL (140-400); Red Blood Count 4.73 M/mcL (4.19-5.50); Red Cell Distribution Width 18.5 % (11.5-14.5); Segmented Neutrophils % 64.4 %; White Blood Count 8.2 K/mcL (4.3-11.1)
[2022-02-10 18:02] LABS: BUN/Creatinine Ratio 12 (6-26); Blood Urea Nitrogen 14 mg/dL (8-23); Calcium 9.3 mg/dL (8.6-10.3); Carbon Dioxide 28 mEq/L (23-29); Chloride 105 mEq/L (98-107); Glucose 153 mg/dL (70-105); Osmolality,Calculated 292 (280-300); Potassium 3.9 mEq/L (3.5-5.1); Sodium 139 mEq/L (136-145); Troponin I < 0.03 ng/mL (< 0.04); eGFR For African Americans > 60 (> 60); eGFR For Non-African Americans > 60 (> 60)
[2022-02-10] MEDS ORDERED: Melatonin 3 MG TABLET PO PRN (19:24)
[2022-02-10] MEDS ORDERED: Naloxone 0.4 MG/ML INJ IVP PRN (19:24)
[2022-02-10] MEDS ORDERED: *HR* Dextrose 50 % in Water (Syg) 50 ML SYRINGE IVP PRN (19:29)
[2022-02-10] MEDS ORDERED: D5% in Water 1,000 ML IVC PRN (19:29)
[2022-02-10] MEDS ORDERED: Dextrose 4 GM Chewable Tablets PO PRN ×2 (19:29)
[2022-02-10] MEDS: Budesonide/Formoterol 160/4.5 1 PUFF INH IH SCH (20:24)
[2022-02-10] MEDS: Furosemide 20 MG/2 ML VIAL IVP SCH (23:17)
[2022-02-10] MEDS: Insulin LISPRO 300 UNITS/3 ML VIAL SUBQ SCH (23:18)
[2022-02-11 01:16] LABS: Basophils # 0.1 K/mcL (0.0-0.2); Eosinophils # 0.3 K/mcL (0.0-0.6); Eosinophils % 4.4 %; Hematocrit 36.7 % (37.5-50.1); Hemoglobin 10.6 g/dL (12.9-16.9); Immature Granulocytes % 0.2 % (0-4); Lymphocytes # 1.6 K/mcL (0.6-4.6); Lymphocytes % 27.4 %; Mean Corpuscular HGB Conc 28.9 g/dL (31.6-35.5); Mean Corpuscular Hemoglobin 21.7 pg (28.0-33.3); Mean Corpuscular Volume 75.2 fL (83.0-100.0); Mean Platelet Volume 11.6 fL (9.4-12.4); Monocytes # 0.5 K/mcL (0.0-1.3); Neutrophils # 3.5 K/mcL (1.6-8.9); Red Blood Count 4.88 M/mcL (4.19-5.50); Red Cell Distribution Width 18.3 % (11.5-14.5); White Blood Count 5.9 K/mcL (4.3-11.1)
[2022-02-11 01:24] LABS: Platelet Count 99 K/mcL (140-400)
[2022-02-11 01:37] LABS: % Iron Saturation 4 % (20-55); Alanine Aminotransferase 29 Units/L (7-52); Albumin 3.4 g/dL (3.5-5.7); Alkaline Phosphatase 77 Units/L (34-104); Aspartate Amino Transferase 41 Units/L (13-39); BUN/Creatinine Ratio 14 (6-26); Bilirubin,Total 0.5 mg/dL (0.3-1.0); Blood Urea Nitrogen 16 mg/dL (8-23); Carbon Dioxide 28 mEq/L (23-29); Chloride 106 mEq/L (98-107); Globulin 3.4 g/dL (2.4-3.5); Glucose 110 mg/dL (70-105); Iron 18 mcg/dL (65-175); Osmolality,Calculated 294 (280-300); Potassium 3.4 mEq/L (3.5-5.1); Sodium 141 mEq/L (136-145); Total Protein 6.8 g/dL (6.4-8.9); Transferrin 312 mg/dL (203-362); eGFR For African Americans > 60 (> 60); eGFR For Non-African Americans > 60 (> 60)
[2022-02-11 01:44] LABS: Phosphorous 3.9 mg/dL (2.7-4.5); Troponin I < 0.03 ng/mL (< 0.04)
[2022-02-11 01:58] LABS: Folate 22.2 ng/mL (3.0-16.0)
[2022-02-11 02:00] LABS: Vitamin B12 > 1500 pg/mL (250-1100)
[2022-02-11] MEDS: Nitroglycerin 0.4 MG TAB.SUBL SL SCH (05:53)
[2022-02-11] MEDS: Insulin LISPRO 300 UNITS/3 ML VIAL SUBQ SCH ×4 (06:58→21:06)
[2022-02-11] MEDS: Furosemide 20 MG/2 ML VIAL IVP SCH ×2 (07:49→17:12)
[2022-02-11] MEDS ORDERED: Aspirin Enteric Coated 81 MG Tablet PO SCH (09:00)
[2022-02-11] MEDS: Budesonide/Formoterol 160/4.5 1 PUFF INH IH SCH ×2 (10:24→20:45)
[2022-02-11] MEDS ORDERED: Perflutren Lipid Microsphere 1.3 ML in 0.9 % Sodium Chloride 8.7 ML IVP PRN (11:20)
[2022-02-11] MEDS: carvediloL 6.25 MG TABLET PO SCH ×2 (11:53→17:12)
[2022-02-11] MEDS: Spironolactone 25 MG TABLET PO SCH (11:53)
[2022-02-11] MEDS: *HR* OxyCODONE/APAP 5/325 TABLET PO SCH ×2 (17:02→21:05)
[2022-02-11] MEDS ORDERED: Isovue-370 500 ML BOTTLE IVP ONE (17:05)
[2022-02-11] MEDS ORDERED: Albuterol 2.5 MG/3 ML NEBULIZER ONE (20:56)
[2022-02-11] MEDS: Ipratropium/Albuterol Neb 3 ML IH PRN (21:08)
[2022-02-12] MEDS: Ipratropium/Albuterol Neb 3 ML IH PRN ×2 (07:29→20:37)
[2022-02-12] MEDS: Budesonide/Formoterol 160/4.5 1 PUFF INH IH SCH ×2 (07:29→20:37)
[2022-02-12] MEDS: Furosemide 20 MG/2 ML VIAL IVP SCH ×2 (07:55→17:36)
[2022-02-12] MEDS: Aspirin 325 MG TABLET PO SCH (07:55)
[2022-02-12] MEDS: *HR* OxyCODONE/APAP 5/325 TABLET PO SCH ×3 (07:56→20:21)
[2022-02-12] MEDS: Spironolactone 25 MG TABLET PO SCH (07:56)
[2022-02-12] MEDS: Insulin LISPRO 300 UNITS/3 ML VIAL SUBQ SCH ×4 (07:56→20:22)
[2022-02-12] MEDS: carvediloL 6.25 MG TABLET PO SCH ×2 (07:56→17:36)
[2022-02-12 10:47] LABS: Hemoglobin 10.7 g/dL (12.9-16.9); Immature Granulocytes % 0.3 % (0-4); Mean Corpuscular HGB Conc 29.2 g/dL (31.6-35.5); Mean Corpuscular Hemoglobin 21.8 pg (28.0-33.3); Mean Corpuscular Volume 74.7 fL (83.0-100.0); Mean Platelet Volume 11.2 fL (9.4-12.4); Platelet Count 103 K/mcL (140-400)
[2022-02-12 10:49] LABS: Basophils # 0.1 K/mcL (0.0-0.2); Basophils % 0.9 %; Eosinophils # 0.3 K/mcL (0.0-0.6); Eosinophils % 3.6 %; Hematocrit 36.6 % (37.5-50.1); Immature Platelets 6.5 % (1.1-6.1); Lymphocytes # 1.7 K/mcL (0.6-4.6); Lymphocytes % 21.5 %; Monocytes # 0.7 K/mcL (0.0-1.3); Monocytes % 8.8 %; Neutrophils # 5.1 K/mcL (1.6-8.9); Red Cell Distribution Width 18.2 % (11.5-14.5); Segmented Neutrophils % 64.9 %; White Blood Count 7.8 K/mcL (4.3-11.1)
[2022-02-12 11:04] LABS: Alanine Aminotransferase 27 Units/L (7-52); Albumin 3.7 g/dL (3.5-5.7); Albumin/Globulin Ratio 1.2 (1.1-2.2); Alkaline Phosphatase 88 Units/L (34-104); Aspartate Amino Transferase 38 Units/L (13-39); BUN/Creatinine Ratio 15 (6-26); Bilirubin,Direct 0.3 mg/dL (0.0-0.2); Bilirubin,Indirect 0.5 mg/dL (0.0-1.0); Bilirubin,Total 0.8 mg/dL (0.3-1.0); Blood Urea Nitrogen 17 mg/dL (8-23); Calcium 8.7 mg/dL (8.6-10.3); Carbon Dioxide 25 mEq/L (23-29); Chloride 100 mEq/L (98-107); Globulin 3.2 g/dL (2.4-3.5); Glucose 367 mg/dL (70-105); Osmolality,Calculated 298 (280-300); Potassium 3.7 mEq/L (3.5-5.1); Sodium 136 mEq/L (136-145); Total Protein 6.9 g/dL (6.4-8.9); eGFR For African Americans > 60 (> 60); eGFR For Non-African Americans > 60 (> 60)
[2022-02-12] MEDS: *HR* Insulin Regular U-500 500 UNIT/ML SUBQ SCH (17:38)
[2022-02-12] MEDS: traZODone 50 MG TABLET PO SCH (20:21)
[2022-02-12] MEDS: Pregabalin 50 MG CAPSULE PO SCH (20:21)
[2022-02-12] MEDS: risperiDONE 1 MG TABLET PO SCH (20:21)
[2022-02-12] MEDS ORDERED: MOM Conc 10 ML UD.LIQ PO ONE (20:30)
[2022-02-13] MEDS: Ipratropium/Albuterol Neb 3 ML IH PRN (04:32)
[2022-02-13] MEDS: Furosemide 20 MG/2 ML VIAL IVP SCH ×2 (08:10→16:25)
[2022-02-13] MEDS: Pregabalin 50 MG CAPSULE PO SCH ×3 (08:13→22:49)
[2022-02-13] MEDS: *HR* OxyCODONE/APAP 5/325 TABLET PO SCH ×3 (08:13→22:49)
[2022-02-13] MEDS: Spironolactone 25 MG TABLET PO SCH (08:13)
[2022-02-13] MEDS: carvediloL 6.25 MG TABLET PO SCH ×2 (08:14→16:24)
[2022-02-13] MEDS: Aspirin 325 MG TABLET PO SCH (08:15)
[2022-02-13] MEDS: *HR* Insulin Regular U-500 500 UNIT/ML SUBQ SCH ×3 (08:15→18:36)
[2022-02-13] MEDS: Insulin LISPRO 300 UNITS/3 ML VIAL SUBQ SCH ×4 (08:16→22:50)
[2022-02-13] MEDS ORDERED: ROSUVASTATIN CALCIUM 10 MG PO SCH (09:00)
[2022-02-13] MEDS ORDERED: Isovue-370 500 ML BOTTLE IVP ONE (09:34)
[2022-02-13 09:45] LABS: Basophils # 0.1 K/mcL (0.0-0.2); Eosinophils # 0.2 K/mcL (0.0-0.6); Eosinophils % 3.3 %; Hematocrit 35.5 % (37.5-50.1); Hemoglobin 10.4 g/dL (12.9-16.9); Immature Granulocytes % 0.2 % (0-4); Immature Platelets 6.7 % (1.1-6.1); Lymphocytes # 1.3 K/mcL (0.6-4.6); Lymphocytes % 21.8 %; Mean Corpuscular HGB Conc 29.3 g/dL (31.6-35.5); Mean Corpuscular Hemoglobin 21.6 pg (28.0-33.3); Mean Corpuscular Volume 73.7 fL (83.0-100.0); Mean Platelet Volume 11.4 fL (9.4-12.4); Monocytes # 0.5 K/mcL (0.0-1.3); Neutrophils # 3.9 K/mcL (1.6-8.9); Red Blood Count 4.82 M/mcL (4.19-5.50); Red Cell Distribution Width 17.8 % (11.5-14.5); Segmented Neutrophils % 64.7 %
[2022-02-13 09:48] LABS: Platelet Count 83 K/mcL (140-400)
[2022-02-13 09:52] LABS: BUN/Creatinine Ratio 16 (6-26); Blood Urea Nitrogen 14 mg/dL (8-23); Calcium 8.7 mg/dL (8.6-10.3); Carbon Dioxide 28 mEq/L (23-29); Chloride 104 mEq/L (98-107); Glucose 207 mg/dL (70-105); Osmolality,Calculated 295 (280-300); Potassium 3.5 mEq/L (3.5-5.1); Sodium 139 mEq/L (136-145); eGFR For African Americans > 60 (> 60); eGFR For Non-African Americans > 60 (> 60)
[2022-02-13] MEDS: Tiotropium 10 INH DOSE IH SCH (10:17)
[2022-02-13] MEDS: Budesonide/Formoterol 160/4.5 1 PUFF INH IH SCH ×2 (10:17→20:51)
[2022-02-13] MEDS: traZODone 50 MG TABLET PO SCH (22:50)
[2022-02-13] MEDS: risperiDONE 1 MG TABLET PO SCH (22:50)
[2022-02-14 07:15] VITALS: TEMP 97.6
[2022-02-14] MEDS: Budesonide/Formoterol 160/4.5 1 PUFF INH IH SCH (07:37)
[2022-02-14] MEDS: Tiotropium 10 INH DOSE IH SCH (07:37)
[2022-02-14] MEDS: Ipratropium/Albuterol Neb 3 ML IH PRN (07:37)
[2022-02-14] MEDS: Pregabalin 50 MG CAPSULE PO SCH ×2 (07:49→14:44)
[2022-02-14] MEDS: Spironolactone 25 MG TABLET PO SCH (07:49)
[2022-02-14] MEDS: Aspirin 325 MG TABLET PO SCH (07:49)
[2022-02-14] MEDS: Furosemide 20 MG/2 ML VIAL IVP SCH (07:51)
[2022-02-14] MEDS: carvediloL 6.25 MG TABLET PO SCH (07:51)
[2022-02-14] MEDS: *HR* Insulin Regular U-500 500 UNIT/ML SUBQ SCH ×2 (07:51→12:33)
[2022-02-14] MEDS: *HR* OxyCODONE/APAP 5/325 TABLET PO SCH ×2 (07:52→14:44)
[2022-02-14] MEDS: Insulin LISPRO 300 UNITS/3 ML VIAL SUBQ SCH ×2 (08:00→12:31)
[2022-02-14 12:03] VITALS: BP 118/65; PULSE 70; O2SAT 99
== END 2022-02-14 15:44 | disposition home or self-care (01) | DRG 291 ==
LOC: EMEROOARM 17:00 → 3BNU 17:00 → SUATTDRO 19:18 → 3BNU 20:07
PROVIDERS: ADMIT Internal Medicine; ATTEND Registered Nurse

== ENCOUNTER 2022-04-04 14:03 | Observation (INO) ==
[2022-04-04] MEDS ORDERED: 0.9 % Sodium Chloride 500 ML IVC ONE (15:23)
[2022-04-04] MEDS ORDERED: Aspirin 81 MG TAB.CHEW PO ONE (15:23)
[2022-04-04] MEDS ORDERED: Isovue-370 500 ML BOTTLE IVP ONE ×2 (15:25→22:23)
[2022-04-04 15:53] LABS: Basophils # 0.1 K/mcL (0.0-0.2); Basophils % 0.9 %; Eosinophils # 0.2 K/mcL (0.0-0.6); Hematocrit 33.4 % (37.5-50.1); Hemoglobin 9.9 g/dL (12.9-16.9); Immature Granulocytes % 0.2 % (0-4); Lymphocytes # 1.4 K/mcL (0.6-4.6); Lymphocytes % 24.4 %; Mean Corpuscular HGB Conc 29.6 g/dL (31.6-35.5); Mean Corpuscular Hemoglobin 22.4 pg (28.0-33.3); Mean Corpuscular Volume 75.6 fL (83.0-100.0); Mean Platelet Volume 10.9 fL (9.4-12.4); Monocytes # 0.5 K/mcL (0.0-1.3); Monocytes % 8.1 %; Neutrophils # 3.6 K/mcL (1.6-8.9); Red Blood Count 4.42 M/mcL (4.19-5.50); Red Cell Distribution Width 19.3 % (11.5-14.5); Segmented Neutrophils % 62.4 %; White Blood Count 5.8 K/mcL (4.3-11.1)
[2022-04-04 15:55] LABS: Platelet Count 89 K/mcL (140-400)
[2022-04-04 16:00] LABS: INR 1.3; Prothrombin Time 14.2 Seconds (9.4-12.1)
[2022-04-04 16:02] LABS: Activated Partial Thrombo Time 31.2 Seconds (26.0-36.0)
[2022-04-04 16:16] LABS: Alanine Aminotransferase 25 Units/L (7-52); Albumin 3.4 g/dL (3.5-5.7); Albumin/Globulin Ratio 1.2 (1.1-2.2); Alkaline Phosphatase 96 Units/L (34-104); Aspartate Amino Transferase 33 Units/L (13-39); BUN/Creatinine Ratio 16 (6-26); Bilirubin,Direct 0.1 mg/dL (0.0-0.2); Bilirubin,Indirect 0.4 mg/dL (0.0-1.0); Bilirubin,Total 0.5 mg/dL (0.3-1.0); Blood Urea Nitrogen 17 mg/dL (8-23); Carbon Dioxide 25 mEq/L (23-29); Chloride 107 mEq/L (98-107); Globulin 2.9 g/dL (2.4-3.5); Glucose 218 mg/dL (70-105); Lipase 54 Units/L (11-82); Osmolality,Calculated 294 (280-300); Potassium 3.8 mEq/L (3.5-5.1); Sodium 138 mEq/L (136-145); Total Protein 6.3 g/dL (6.4-8.9); Troponin I < 0.03 ng/mL (< 0.04); eGFR For African Americans > 60 (> 60); eGFR For Non-African Americans > 60 (> 60)
[2022-04-04 17:32] LABS: Amphetamine Screen,Urine Negative ng/mL (Cutoff=1000); Barbiturate Screen,Urine Negative ng/mL (Cutoff=200); Benzodiazepines Screen,Urine Negative ng/mL (Cutoff=200); Cannabinoid Screen,Urine Negative ng/mL (Cutoff = 50); Cocaine Screen,Urine Negative ng/mL (Cutoff= 300); Opiate Screen,Urine Negative ng/mL (Cutoff=300); Phencyclidine Screen,Urine Negative ng/mL (Cutoff=25)
[2022-04-04 17:34] LABS: Bacteria,Urine Moderate per hpf (None-Few); Bilirubin,Urine Negative (Negative); Blood,Urine Negative (Negative); Clarity,Urine Turbid (Clear); Color,Urine Light-Yellow (Yellow); Glucose,Urine (UA) >=1000 mg/dL (Normal); Ketones,Urine Negative (Negative); Leukocyte Esterase,Urine Large (Negative); Mucus,Urine Few per lpf (None-Few); Nitrite,Urine Negative (Negative); Protein,Urine Trace mg/dL (Neg-Trace); Specific Gravity,Urine 1.022 (1.010-1.025); Squamous Epithelial Cell,Urine Few per hpf (None-Few); Urobilinogen,Urine Normal (Normal); WBC,Urine TNTC per hpf (0-3)
[2022-04-04] MEDS ORDERED: Acetaminophen 325 MG TABLET PO ONE (19:07)
[2022-04-04] MEDS ORDERED: cefTRIAXone 1,000 MG in 0.9 % Sodium Chloride Mini Bag 100 ML IVPB ONE (19:28)
[2022-04-04] MEDS ORDERED: *HR* Dextrose 50 % in Water (Syg) 50 ML SYRINGE IVP PRN (20:28)
[2022-04-04] MEDS ORDERED: Dextrose 4 GM Chewable Tablets PO PRN ×2 (20:28)
[2022-04-04] MEDS ORDERED: D5% in Water 1,000 ML IVC PRN (20:28)
[2022-04-04] MEDS ORDERED: methocarbamoL 500 MG TABLET PO PRN (20:29)
[2022-04-04] MEDS ORDERED: Nitroglycerin 0.4 MG TAB.SUBL SL PRN (20:34)
[2022-04-04] MEDS ORDERED: Naloxone 0.4 MG/ML INJ IVP PRN (20:39)
[2022-04-04] MEDS ORDERED: Perflutren Lipid Microsphere 1.3 ML in 0.9 % Sodium Chloride 8.7 ML IVP PRN (21:06)
[2022-04-04] MEDS: Budesonide/Formoterol 160/4.5 1 PUFF INH IH SCH (21:11)
[2022-04-04] MEDS ORDERED: Budesonide Neb 0.5 MG/2 ML IH SCH (22:00)
[2022-04-04] MEDS ORDERED: *HR* Heparin 5,000 UNIT/ML VIAL SQ SCH (22:00)
[2022-04-04] MEDS ORDERED: *HR* Heparin 5,000 UNIT/ML VIAL IVP ONE (22:15)
[2022-04-04] MEDS ORDERED: *HR* Heparin 5,000 UNIT/ML VIAL IVP PRN ×2 (22:15)
[2022-04-04] MEDS: carvediloL 6.25 MG TABLET PO SCH (22:44)
[2022-04-04] MEDS: Mirtazapine 15 MG TABLET PO SCH (22:45)
[2022-04-04] MEDS: traZODone 50 MG TABLET PO SCH (22:45)
[2022-04-04] MEDS: risperiDONE 1 MG TABLET PO SCH (22:46)
[2022-04-04] MEDS: Pregabalin 75 MG CAPSULE PO SCH (22:46)
[2022-04-04] MEDS: Azelastine 0.1% Nasal Spray 30 ML BOTTLE NS SCH (22:46)
[2022-04-04] MEDS: Topiramate 100 MG TABLET PO SCH (22:46)
[2022-04-04] MEDS: Latanoprost 2.5 ML BOTTLE BOTH EYES SCH (22:47)
[2022-04-04] MEDS: Heparin 25,000UNIT/250ML 1/2NS 25,000 UNIT/250 ML IV.SOLN IVC SCH (22:47)
[2022-04-04] MEDS: Insulin LISPRO 300 UNITS/3 ML VIAL SUBQ SCH (23:02)
[2022-04-04 23:05] LABS: Heparin anti-factor XA UFH < 0.04 IU/mL (0.30-0.70)
[2022-04-04 23:06] LABS: INR 1.2; Prothrombin Time 13.9 Seconds (9.4-12.1)
[2022-04-05] MEDS: Morphine Sulfate 2 MG/ML SYRINGE IVP PRN ×3 (00:02→18:59)
[2022-04-05 04:30] LABS: Hemoglobin 9.5 g/dL (12.9-16.9); Mean Corpuscular Volume 76.7 fL (83.0-100.0)
[2022-04-05 04:31] LABS: Hematocrit 32.3 % (37.5-50.1); Immature Platelets 6.1 % (1.1-6.1); Mean Corpuscular HGB Conc 29.4 g/dL (31.6-35.5); Mean Corpuscular Hemoglobin 22.6 pg (28.0-33.3); Mean Platelet Volume 11.3 fL (9.4-12.4); Red Blood Count 4.21 M/mcL (4.19-5.50); Red Cell Distribution Width 19.3 % (11.5-14.5); White Blood Count 5.7 K/mcL (4.3-11.1)
[2022-04-05 04:48] LABS: BUN/Creatinine Ratio 12 (6-26); Blood Urea Nitrogen 14 mg/dL (8-23); Calcium 8.6 mg/dL (8.6-10.3); Carbon Dioxide 25 mEq/L (23-29); Chloride 110 mEq/L (98-107); Chol/HDL Ratio 2.6 (0-4.9); Cholesterol 101 mg/dL (< 200); Glucose 203 mg/dL (70-105); HDL Cholesterol 39 mg/dL (40-59); Heparin anti-factor XA UFH 0.95 IU/mL (0.30-0.70); LDL Cholesterol,Calculated 42 mg/dL (< 100); Osmolality,Calculated 296 (280-300); Potassium 3.7 mEq/L (3.5-5.1); Sodium 140 mEq/L (136-145); Triglycerides 102 mg/dL (< 150); eGFR For African Americans > 60 (> 60); eGFR For Non-African Americans > 60 (> 60)
[2022-04-05 04:49] LABS: % Iron Saturation 5 % (20-55); Iron 19 mcg/dL (65-175); Transferrin 287 mg/dL (203-362)
[2022-04-05 04:50] LABS: Troponin I 0.03 ng/mL (< 0.04)
[2022-04-05 05:03] LABS: Thyroid Stimulating Hormone 0.79 mcIU/mL (0.340-5.600)
[2022-04-05 05:09] LABS: Ferritin < 8 ng/mL (20-250)
[2022-04-05 05:12] LABS: Folate 20.8 ng/mL (3.0-16.0)
[2022-04-05] MEDS: Insulin LISPRO 300 UNITS/3 ML VIAL SUBQ SCH ×3 (05:19→17:36)
[2022-04-05] MEDS: Budesonide/Formoterol 160/4.5 1 PUFF INH IH SCH ×2 (08:56→20:16)
[2022-04-05] MEDS: Tiotropium 10 INH DOSE IH SCH (10:01)
[2022-04-05] MEDS: Aspirin Enteric Coated 81 MG Tablet PO SCH (10:15)
[2022-04-05] MEDS: Spironolactone 25 MG TABLET PO SCH (10:15)
[2022-04-05] MEDS: Furosemide 40 MG TABLET PO SCH (10:15)
[2022-04-05] MEDS: predniSONE 5 MG TABLET PO SCH (10:15)
[2022-04-05] MEDS: Topiramate 25 MG TABLET PO SCH (10:16)
[2022-04-05] MEDS: Cholecalciferol (D-3) 1,000 UNIT (25MCG) TABLET PO SCH (10:16)
[2022-04-05] MEDS: Cyanocobalamin (B-12) 1,000 MCG TABLET PO SCH (10:16)
[2022-04-05] MEDS: Pregabalin 75 MG CAPSULE PO SCH ×3 (10:16→22:37)
[2022-04-05] MEDS: carvediloL 6.25 MG TABLET PO SCH ×2 (10:19→16:42)
[2022-04-05] MEDS: Dapagliflozin Propanediol [Farxiga] 10 MG Tablet PO SCH (10:22)
[2022-04-05] MEDS: Fluticasone Propionate Nasal 50 MCG/SPRAY BOTTLE NS SCH (10:23)
[2022-04-05] MEDS: Azelastine 0.1% Nasal Spray 30 ML BOTTLE NS SCH ×2 (10:23→22:34)
[2022-04-05] MEDS: Heparin 25,000UNIT/250ML 1/2NS 25,000 UNIT/250 ML IV.SOLN IVC SCH (10:53)
[2022-04-05 10:54] LABS: Estimated Average Glucose 192 mg/dl; Hemoglobin A1C 8.3 %
[2022-04-05] MEDS ORDERED: Isovue-370 500 ML BOTTLE IVP ONE (16:00)
[2022-04-05] MEDS ORDERED: Furosemide 40 MG TABLET PO SCH (18:00)
[2022-04-05] MEDS ORDERED: cefTRIAXone 1,000 MG in 0.9 % Sodium Chloride 10 ML IVP SCH (20:00)
[2022-04-05] MEDS ORDERED: Insulin LISPRO 300 UNITS/3 ML VIAL SUBQ SCH (21:00)
[2022-04-05] MEDS: Mirtazapine 15 MG TABLET PO SCH (22:37)
[2022-04-05] MEDS: Topiramate 100 MG TABLET PO SCH (22:38)
[2022-04-05] MEDS: risperiDONE 1 MG TABLET PO SCH (22:38)
[2022-04-05] MEDS: Latanoprost 2.5 ML BOTTLE BOTH EYES SCH (22:39)
[2022-04-05] MEDS: traZODone 50 MG TABLET PO SCH (22:39)
[2022-04-06] MEDS: Heparin 25,000UNIT/250ML 1/2NS 25,000 UNIT/250 ML IV.SOLN IVC SCH ×2 (01:49→09:12)
[2022-04-06 05:18] LABS: Hematocrit 31.8 % (37.5-50.1)
[2022-04-06 05:20] LABS: Immature Platelets 6.8 % (1.1-6.1); Mean Corpuscular HGB Conc 28.3 g/dL (31.6-35.5); Mean Corpuscular Hemoglobin 21.7 pg (28.0-33.3); Mean Corpuscular Volume 76.6 fL (83.0-100.0); Red Blood Count 4.15 M/mcL (4.19-5.50); Red Cell Distribution Width 19.4 % (11.5-14.5)
[2022-04-06 05:21] LABS: Platelet Count 93 K/mcL (140-400)
[2022-04-06 05:39] LABS: BUN/Creatinine Ratio 14 (6-26); Blood Urea Nitrogen 16 mg/dL (8-23); Calcium 8.6 mg/dL (8.6-10.3); Carbon Dioxide 27 mEq/L (23-29); Chloride 104 mEq/L (98-107); Glucose 348 mg/dL (70-105); Osmolality,Calculated 297 (280-300); Sodium 136 mEq/L (136-145); eGFR For African Americans > 60 (> 60); eGFR For Non-African Americans > 60 (> 60)
[2022-04-06 06:30] VITALS: PULSE 70
[2022-04-06] MEDS: Budesonide/Formoterol 160/4.5 1 PUFF INH IH SCH (07:47)
[2022-04-06] MEDS: Tiotropium 10 INH DOSE IH SCH (07:48)
[2022-04-06] MEDS: Aspirin Enteric Coated 81 MG Tablet PO SCH (08:58)
[2022-04-06] MEDS: Topiramate 25 MG TABLET PO SCH (08:58)
[2022-04-06] MEDS: Spironolactone 25 MG TABLET PO SCH (08:58)
[2022-04-06] MEDS: predniSONE 5 MG TABLET PO SCH (08:58)
[2022-04-06] MEDS: carvediloL 6.25 MG TABLET PO SCH (08:58)
[2022-04-06] MEDS: Cholecalciferol (D-3) 1,000 UNIT (25MCG) TABLET PO SCH (08:59)
[2022-04-06] MEDS: Pregabalin 75 MG CAPSULE PO SCH (08:59)
[2022-04-06] MEDS: Furosemide 40 MG TABLET PO SCH (08:59)
[2022-04-06] MEDS: Cyanocobalamin (B-12) 1,000 MCG TABLET PO SCH (08:59)
[2022-04-06] MEDS: Dapagliflozin Propanediol [Farxiga] 10 MG Tablet PO SCH (08:59)
[2022-04-06] MEDS: Azelastine 0.1% Nasal Spray 30 ML BOTTLE NS SCH (09:00)
[2022-04-06] MEDS: Insulin LISPRO 300 UNITS/3 ML VIAL SUBQ SCH ×2 (09:04→12:02)
[2022-04-06] MEDS: Fluticasone Propionate Nasal 50 MCG/SPRAY BOTTLE NS SCH (09:05)
[2022-04-06 10:22] VITALS: BP 118/67; TEMP 97.6; O2SAT 95
== END 2022-04-06 13:18 | disposition home or self-care (01) ==
LOC: EMEROOARM 14:03 → 3BNU 14:03
PROVIDERS: ADMIT Student in an Organized Health Care Education/Training Program; ATTEND Student in an Organized Health Care Education/Training Program

== ENCOUNTER 2022-06-19 13:52 | Observation (INO) ==
[2022-06-19] MEDS ORDERED: Ipratropium/Albuterol Neb 3 ML IH ONE (15:21)
[2022-06-19] MEDS ORDERED: methylPREDNISolone 125 MG/2 ML VIAL IVP ONE (15:22)
[2022-06-19 15:38] LABS: Mean Platelet Volume 10.9 fL (9.4-12.4)
[2022-06-19 15:40] LABS: Hematocrit 33.6 % (37.5-50.1); Hemoglobin 9.6 g/dL (12.9-16.9); Mean Corpuscular HGB Conc 28.6 g/dL (31.6-35.5); Mean Corpuscular Hemoglobin 21.3 pg (28.0-33.3); Mean Corpuscular Volume 74.7 fL (83.0-100.0); Monocytes # 0.4 K/mcL (0.0-1.3); Platelet Count 113 K/mcL (140-400); White Blood Count 7.1 K/mcL (4.3-11.1)
[2022-06-19 16:03] LABS: BUN/Creatinine Ratio 16 (6-26); Blood Urea Nitrogen 18 mg/dL (8-23); Calcium 8.7 mg/dL (8.6-10.3); Carbon Dioxide 26 mEq/L (23-29); Chloride 104 mEq/L (98-107); Glucose 290 mg/dL (70-105); Osmolality,Calculated 299 (280-300); Potassium 4.2 mEq/L (3.5-5.1); Sodium 138 mEq/L (136-145); eGFR For African Americans > 60 (> 60); eGFR For Non-African Americans > 60 (> 60)
[2022-06-19] MEDS ORDERED: Ondansetron 4 MG/2 ML VIAL IVP PRN (16:36)
[2022-06-19] MEDS ORDERED: Naloxone 0.4 MG/ML INJ IVP PRN (16:36)
[2022-06-19 16:37] LABS: Influenza A PCR Negative (Negative); Influenza B PCR Negative (Negative); Resp. Syncytial Virus PCR Negative (Negative); SARS-CoV-2 by PCR (In House) Negative (Negative)
[2022-06-19] MEDS ORDERED: Dextrose Gel 15 GM/37.5 ML TUBE PO PRN ×2 (16:38)
[2022-06-19] MEDS ORDERED: D5% in Water 1,000 ML IVC PRN (16:38)
[2022-06-19] MEDS ORDERED: *HR* Dextrose 50 % in Water (Syg) 50 ML SYRINGE IVP PRN (16:38)
[2022-06-19 16:51] LABS: Anisocytosis 1+ (Not Present); Hypochromasia Present (Not Present); Lymphocytes # 0.7 K/mcL (0.6-4.6); Platelet Estimate Decreased (Normal)
[2022-06-19 16:52] LABS: Polychromasia 1+ (Not Present)
[2022-06-19] MEDS ORDERED: Azithromycin 500 MG VIAL ONE (18:02)
[2022-06-19] MEDS: Azithromycin 500 MG in 0.9 % Sodium Chloride 250 ML IVPB SCH (18:10)
[2022-06-19] MEDS ORDERED: Acetaminophen 325 MG TABLET PO PRN (19:55)
[2022-06-19] MEDS ORDERED: methocarbamoL 500 MG TABLET PO PRN (19:55)
[2022-06-19] MEDS: carvediloL 6.25 MG TABLET PO SCH (20:31)
[2022-06-19] MEDS: Furosemide 40 MG TABLET PO SCH (20:31)
[2022-06-19] MEDS: Topiramate 100 MG TABLET PO SCH (20:33)
[2022-06-19] MEDS: Mirtazapine 15 MG TABLET PO SCH (20:33)
[2022-06-19] MEDS: risperiDONE 1 MG TABLET PO SCH (20:33)
[2022-06-19] MEDS: Albuterol 2.5 MG/3 ML NEBULIZER IH SCH (20:38)
[2022-06-19] MEDS ORDERED: Insulin DETEMIR 100 UNIT/ML X5UNITS SUBQ SCH (21:00)
[2022-06-20 01:38] LABS: Hematocrit 32.2 % (37.5-50.1); Hemoglobin 8.8 g/dL (12.9-16.9); Immature Granulocytes % 0.3 % (0-4); Lymphocytes # 0.8 K/mcL (0.6-4.6); Mean Corpuscular HGB Conc 27.3 g/dL (31.6-35.5); Mean Corpuscular Volume 76.7 fL (83.0-100.0); Monocytes # 0.1 K/mcL (0.0-1.3); Monocytes % 2.4 %; Segmented Neutrophils % 83.3 %; White Blood Count 5.9 K/mcL (4.3-11.1)
[2022-06-20 01:49] LABS: Platelet Count 93 K/mcL (140-400)
[2022-06-20 01:50] LABS: Neutrophils # 4.9 K/mcL (1.6-8.9)
[2022-06-20 01:54] LABS: BUN/Creatinine Ratio 18 (6-26); Blood Urea Nitrogen 21 mg/dL (8-23); Calcium 8.4 mg/dL (8.6-10.3); Carbon Dioxide 23 mEq/L (23-29); Chloride 104 mEq/L (98-107); Glucose 397 mg/dL (70-105); Osmolality,Calculated 300 (280-300); Potassium 4.3 mEq/L (3.5-5.1); Sodium 135 mEq/L (136-145); eGFR For African Americans > 60 (> 60); eGFR For Non-African Americans > 60 (> 60)
[2022-06-20 02:16] LABS: Folate > 22.3 ng/mL (3.0-16.0); Vitamin B12 > 1500 pg/mL (250-1100)
[2022-06-20 02:43] LABS: Anisocytosis 1+ (Not Present); Hypochromasia Present (Not Present); Platelet Estimate Decreased (Normal)
[2022-06-20] MEDS: Albuterol 2.5 MG/3 ML NEBULIZER IH SCH ×4 (03:43→20:35)
[2022-06-20] MEDS: carvediloL 6.25 MG TABLET PO SCH ×2 (08:10→22:28)
[2022-06-20] MEDS: Aspirin Enteric Coated 81 MG Tablet PO SCH (08:10)
[2022-06-20] MEDS: Insulin LISPRO 300 UNITS/3 ML VIAL SUBQ SCH ×3 (08:11→16:38)
[2022-06-20] MEDS: MethylPREDNISolone 40 MG/ML VIAL IVP SCH (08:11)
[2022-06-20] MEDS ORDERED: Nitroglycerin 0.4 MG TAB.SUBL SL PRN (12:08)
[2022-06-20] MEDS ORDERED: Morphine Sulfate 2 MG/ML SYRINGE IVP ONE (12:08)
[2022-06-20] MEDS ORDERED: Iron Sucrose Complex 400 MG in 0.9 % Sodium Chloride 250 ML IVPB ONE (15:00)
[2022-06-20] MEDS: Pregabalin 75 MG CAPSULE PO SCH ×2 (16:36→22:28)
[2022-06-20] MEDS ORDERED: *HR* Insulin Regular U-500 500 UNIT/ML SUBQ SCH (17:00)
[2022-06-20] MEDS: Azithromycin 500 MG in 0.9 % Sodium Chloride 250 ML IVPB SCH (19:01)
[2022-06-20] MEDS: Furosemide 40 MG TABLET PO SCH (19:02)
[2022-06-20] MEDS ORDERED: Insulin LISPRO 300 UNITS/3 ML VIAL SUBQ SCH (21:00)
[2022-06-20] MEDS ORDERED: traZODone 50 MG TABLET PO PRN (21:26)
[2022-06-20] MEDS: risperiDONE 1 MG TABLET PO SCH (22:28)
[2022-06-20] MEDS: Mirtazapine 15 MG TABLET PO SCH (22:28)
[2022-06-20] MEDS: Topiramate 100 MG TABLET PO SCH (22:28)
[2022-06-21 02:36] LABS: Eosinophils % 0.3 %; Mean Corpuscular HGB Conc 28.3 g/dL (31.6-35.5); Nucleated Red Blood Cells 0.3 /100 WBC (0); Segmented Neutrophils % 70.6 %
[2022-06-21 02:38] LABS: Basophils % 0.2 %; Hematocrit 33.2 % (37.5-50.1); Hemoglobin 9.4 g/dL (12.9-16.9); Immature Granulocytes % 0.3 % (0-4); Immature Platelets 8.2 % (1.1-6.1); Lymphocytes # 2.3 K/mcL (0.6-4.6); Lymphocytes % 19.3 %; Mean Corpuscular Volume 74.1 fL (83.0-100.0); Monocytes # 1.1 K/mcL (0.0-1.3); Monocytes % 9.3 %; Platelet Count 106 K/mcL (140-400); Red Blood Count 4.48 M/mcL (4.19-5.50); Red Cell Distribution Width 19.1 % (11.5-14.5); White Blood Count 11.8 K/mcL (4.3-11.1)
[2022-06-21 02:58] LABS: BUN/Creatinine Ratio 21 (6-26); Blood Urea Nitrogen 22 mg/dL (8-23); Calcium 8.9 mg/dL (8.6-10.3); Carbon Dioxide 26 mEq/L (23-29); Chloride 107 mEq/L (98-107); Glucose 119 mg/dL (70-105); Osmolality,Calculated 294 (280-300); Potassium 4.1 mEq/L (3.5-5.1); Sodium 140 mEq/L (136-145); eGFR For African Americans > 60 (> 60); eGFR For Non-African Americans > 60 (> 60)
[2022-06-21 03:02] VITALS: TEMP 98.3
[2022-06-21 03:09] LABS: Neutrophils # 8.3 K/mcL (1.6-8.9)
[2022-06-21] MEDS: Albuterol 2.5 MG/3 ML NEBULIZER IH SCH ×2 (04:06→09:56)
[2022-06-21 04:10] LABS: Hypochromasia Present (Not Present); Platelet Estimate Decreased (Normal)
[2022-06-21 07:07] VITALS: BP 125/75; PULSE 73
[2022-06-21] MEDS: Insulin LISPRO 300 UNITS/3 ML VIAL SUBQ SCH ×2 (07:50→12:56)
[2022-06-21] MEDS: *HR* Insulin Regular U-500 500 UNIT/ML SUBQ SCH ×3 (07:50→12:48)
[2022-06-21] MEDS: MethylPREDNISolone 40 MG/ML VIAL IVP SCH (08:23)
[2022-06-21] MEDS: Pregabalin 75 MG CAPSULE PO SCH (08:24)
[2022-06-21] MEDS: carvediloL 6.25 MG TABLET PO SCH (08:24)
[2022-06-21] MEDS: Aspirin Enteric Coated 81 MG Tablet PO SCH (08:25)
[2022-06-21] MEDS ORDERED: Spironolactone 25 MG TABLET PO SCH (09:00)
[2022-06-21] MEDS ORDERED: Topiramate 25 MG TABLET PO SCH (09:00)
[2022-06-21 09:58] VITALS: O2SAT 95
[2022-06-21 14:09] LABS: Estimated Average Glucose 194 mg/dl; Hemoglobin A1C 8.4 %
== END 2022-06-21 14:48 | disposition home or self-care (01) ==
LOC: EMEROOARM 13:52 → 3BNU 13:52 → SUATTDRO 17:04 → 3BNU 17:59
PROVIDERS: ADMIT Internal Medicine; ATTEND Registered Nurse

== ENCOUNTER 2022-07-22 13:35 | Observation (INO) ==
[2022-07-22] MEDS ORDERED: Iopamidol - 370 500 ML MLS IVP ONE (14:25)
[2022-07-22] MEDS ORDERED: Prochlorperazine 10 MG/2 ML VIAL IVP ONE (14:29)
[2022-07-22 14:44] LABS: Red Blood Count 4.92 M/mcL (4.19-5.50); Red Cell Distribution Width 22.6 % (11.5-14.5)
[2022-07-22 14:45] LABS: Hematocrit 38.9 % (37.5-50.1); Hemoglobin 10.9 g/dL (12.9-16.9); Mean Corpuscular Hemoglobin 22.2 pg (28.0-33.3); Mean Corpuscular Volume 79.1 fL (83.0-100.0); Mean Platelet Volume 10.8 fL (9.4-12.4); Platelet Count 103 K/mcL (140-400); White Blood Count 6.5 K/mcL (4.3-11.1)
[2022-07-22 15:06] LABS: Bilirubin,Urine Negative (Negative); Blood,Urine Negative (Negative); Clarity,Urine Clear (Clear); Color,Urine Colorless (Yellow); Glucose,Urine (UA) 500 mg/dL (Normal); Ketones,Urine Negative (Negative); Leukocyte Esterase,Urine Negative (Negative); Nitrite,Urine Negative (Negative); PH,Urine 6.5 pH Units (5.0-8.0); Protein,Urine Negative (Neg-Trace); RBC,Urine 0-3 per hpf (0-3); Specific Gravity,Urine 1.006 (1.010-1.025); Urobilinogen,Urine Normal (Normal); WBC,Urine 0-3 per hpf (0-3)
[2022-07-22 15:07] LABS: BUN/Creatinine Ratio 9 (6-26); Blood Urea Nitrogen 10 mg/dL (8-23); Calcium 8.6 mg/dL (8.6-10.3); Carbon Dioxide 27 mEq/L (23-29); Chloride 106 mEq/L (98-107); Glucose 198 mg/dL (70-105); Osmolality,Calculated 293 (280-300); Potassium 3.8 mEq/L (3.5-5.1); Sodium 139 mEq/L (136-145); Troponin I < 0.03 ng/mL (< 0.04)
[2022-07-22] MEDS ORDERED: Naloxone 0.4 MG/ML INJ IVP PRN (17:52)
[2022-07-22] MEDS ORDERED: Acetaminophen 325 MG TABLET PO PRN (17:55)
[2022-07-22] MEDS ORDERED: D5% in Water 1,000 ML IVC PRN (18:38)
[2022-07-22] MEDS ORDERED: *HR* Dextrose 50 % in Water (Syg) 50 ML SYRINGE IVP PRN (18:38)
[2022-07-22] MEDS ORDERED: Dextrose Gel 15 GM/37.5 ML TUBE PO PRN ×2 (18:38)
[2022-07-22 20:41] LABS: Albumin 3.6 g/dL (3.5-5.7); Albumin/Globulin Ratio 1.2 (1.1-2.2); Bilirubin,Direct 0.2 mg/dL (0.0-0.2); Bilirubin,Indirect 0.5 mg/dL (0.0-1.0); Bilirubin,Total 0.7 mg/dL (0.3-1.0); Globulin 3.1 g/dL (2.4-3.5); Total Protein 6.7 g/dL (6.4-8.9)
[2022-07-22] MEDS ORDERED: Insulin LISPRO 300 UNITS/3 ML VIAL SUBQ SCH (21:00)
[2022-07-23 01:10] LABS: Basophils # 0.1 K/mcL (0.0-0.2); Basophils % 0.7 %; Eosinophils # 0.1 K/mcL (0.0-0.6); Hematocrit 35.9 % (37.5-50.1); Hemoglobin 10.1 g/dL (12.9-16.9); Immature Granulocytes % 0.4 % (0-4); Immature Platelets 4.1 % (1.1-6.1); Lymphocytes # 1.4 K/mcL (0.6-4.6); Lymphocytes % 19.7 %; Mean Corpuscular HGB Conc 28.1 g/dL (31.6-35.5); Mean Corpuscular Hemoglobin 22.5 pg (28.0-33.3); Mean Platelet Volume 10.7 fL (9.4-12.4); Monocytes # 0.6 K/mcL (0.0-1.3); Monocytes % 8.7 %; Neutrophils # 4.8 K/mcL (1.6-8.9); Red Blood Count 4.49 M/mcL (4.19-5.50); Red Cell Distribution Width 22.4 % (11.5-14.5); Segmented Neutrophils % 68.5 %
[2022-07-23 01:13] LABS: Platelet Count 94 K/mcL (140-400)
[2022-07-23 01:44] LABS: Calcium 8.1 mg/dL (8.6-10.3); Potassium 3.9 mEq/L (3.5-5.1)
[2022-07-23] MEDS: Insulin LISPRO 300 UNITS/3 ML VIAL SUBQ SCH ×3 (07:35→16:11)
[2022-07-23 13:46] LABS: Thyroid Stimulating Hormone 0.863 mcIU/mL (0.340-5.600)
[2022-07-23] MEDS ORDERED: Pregabalin 50 MG CAPSULE PO SCH (15:00)
[2022-07-23] MEDS ORDERED: *HR* OxyCODONE/APAP 5/325 TABLET PO SCH (15:00)
[2022-07-23 15:26] VITALS: BP 162/85; PULSE 72; TEMP 98.1; O2SAT 96
[2022-07-23] MEDS ORDERED: carvediloL 6.25 MG TABLET PO SCH (17:00)
[2022-07-23] MEDS ORDERED: Furosemide 40 MG TABLET PO SCH (17:00)
[2022-07-23] MEDS ORDERED: Mirtazapine 15 MG TABLET PO SCH (21:00)
[2022-07-23] MEDS ORDERED: Topiramate 100 MG TABLET PO SCH (21:00)
[2022-07-23] MEDS ORDERED: Budesonide/Formoterol 160/4.5 1 PUFF INH IH SCH (22:00)
[2022-07-24] MEDS ORDERED: Aspirin Enteric Coated 81 MG Tablet PO SCH (09:00)
[2022-07-24] MEDS ORDERED: risperiDONE 1 MG TABLET PO SCH (09:00)
[2022-07-24] MEDS ORDERED: Topiramate 25 MG TABLET PO SCH (09:00)
[2022-07-24] MEDS ORDERED: Fluticasone Propionate Nasal 50 MCG/SPRAY BOTTLE NS SCH (09:00)
[2022-07-24] MEDS ORDERED: traZODone 50 MG TABLET PO SCH (09:00)
[2022-07-24] MEDS ORDERED: Tiotropium 10 INH DOSE IH SCH (10:00)
== END 2022-07-23 19:35 | disposition home or self-care (01) ==
LOC: EMEROOARM 13:35 → 3BNU 13:35 → SUATTDRO 18:12 → 3BNU 19:52
PROVIDERS: ADMIT Internal Medicine; ATTEND Nurse Practitioner